=== PATIENT | female | born 1990 | race Caucasian/White ===

== ENCOUNTER 2022-03-01 07:41 | Outpatient (REF) | payer OTHER, SELFPAY ==
[2022-03-01 11:09] LABS: MANUAL DIFF FLAG NO
[2022-03-01 11:14] LABS: Basophils Absolute Auto 0.1 X10*3/uL (0.0-0.2); Basophils Percent Auto 0.9 % (0-2); Eosinophils Absolute Auto 0.6 X10*3/uL (0.0-0.4); Eosinophils Percent Auto 8.7 % (0-4); Hematocrit 37.9 % (37.0-47.0); Hemoglobin 12.7 g/dl (12.0-16.0); Imm Gran Abs Auto 0.02 X10*3/uL (0.00-0.03); Imm Gran Pct Auto 0.3 % (0.0-0.4); Lymphocytes Absolute Auto 1.8 X10*3/uL (1.2-4.9); Lymphocytes Percent Auto 27.6 % (20-40); Mean Corpuscular HGB Conc 33.5 g/dl (31.0-35.0); Mean Corpuscular Hemoglobin 30.5 pg (27.0-33.0); Mean Corpuscular Volume 90.9 fL (80.0-98.0); Mean Platelet Volume 10.8 fL (9.4-12.3); Monocytes Absolute Auto 0.5 X10*3/uL (0.1-1.2); Monocytes Percent Auto 6.9 % (2-11); Neutrophils Absolute Auto 3.7 x10*3/uL (2.0-8.3); Neutrophils Percent Auto 55.6 % (45-73); Platelet Count 311 X10*3/uL (160-400); Red Blood Count 4.17 X10*6/uL (4.20-5.50); Red Cell Distribution Width 12.1 % (11.0-16.0); White Blood Count 6.7 X10*3/uL (4.8-10.8)
[2022-03-01 11:22] LABS: Alanine Aminotransferase 27 U/L (0-31); Albumin Level 4.1 g/dL (3.5-5.0); Alkaline Phosphatase 60 U/L (39-117); Anion Gap 10 (12-20); Aspartate Amino Transferase 17 U/L (5-31); Bilirubin Total 0.5 mg/dL (0.0-1.0); Blood Urea Nitrogen 10 mg/dL (9-16); Calcium 9.3 mg/dL (8.4-10.2); Carbon Dioxide 28 mmol/L (22-29); Chloride 105 mmol/L (96-108); Cholesterol 200 mg/dL; Estimated Glomerular Filt Rate > 60; Glucose Fasting 91 mg/dL (60-99); HDL Cholesterol 40 mg/dL; Iron 74 mcg/dL (30-160); LDL Cholesterol Calculated 130 mg/dl; Percent Iron Saturation 20 % (15-50); Potassium 4.3 mmol/L (3.3-5.1); Sodium 139 mmol/L (135-145); Total Iron Binding Capacity 369 mcg/dL (228-428); Total Protein 6.7 g/dL (6.5-8.0); Triglycerides 153 mg/dL; Unsaturated Iron Binding 295 ug/dL
[2022-03-01 11:40] LABS: ~Hepatitis B Surface Antibody REACTIVE (Nonreactive)
[2022-03-01 11:42] LABS: Estimated Average Glucose 100 mg/dL; Hemoglobin A1c % 5.1 %
[2022-03-01 11:45] LABS: Ferritin 37 ng/mL (10-122); Free T4 (Free Thyroxine) 0.86 ng/dL (0.71-1.85); Thyroid Stimulating Hormone 1.73 uIU/mL (0.32-4.0); Vitamin D 25-OH Total 19.5 ng/mL (>30)
[2022-03-01 11:57] LABS: Vitamin B12 401 pg/mL (200-900)
[2022-03-03 07:07] LABS: Rubella IgG Antibody 3.93 Index
== END 2022-03-01 07:42 | disposition home or self-care (01) ==
LOC: HO.MANLDS 07:41
PROVIDERS: PCP Physician Assistant; Visit Provider Physician Assistant
DX: Z01.84 Encounter for antibody response examination (principal); R53.83 Other fatigue
CPT/HCPCS: 36415; 80053; 80061; 82306; 82607; 82728; 82746; 83036; 83540; 84439; 84443; 85025; 86706; 86735; 86762; 86765; 86787

== ENCOUNTER 2022-07-04 14:27 | Outpatient (REF) | payer OTHER, SELFPAY ==
[2022-07-04 19:15] LABS: UPreg QC Valid YES; Urine Pregnancy POSITIVE (NEGATIVE)
== END 2022-07-04 14:28 | disposition home or self-care (01) ==
LOC: HO.MANLDS 14:27
PROVIDERS: Visit Provider Physician Assistant
DX: Z33.1 Pregnant state, incidental (principal)
CPT/HCPCS: 81025

== ENCOUNTER 2022-11-17 14:28 | Outpatient (REF) | payer SELFPAY ==
--- NOTE | ~2022-11-17 | US_ITS ---
EXAMINATION: ULTRASOUND RIGHT POPLITEAL FOSSA. CLINICAL INFORMATION: Pain. COMPARISON: None TECHNIQUE: Using a linear transducer with grayscale and color modalities, ultrasound examination is performed of the right popliteal fossa. FINDINGS: The cutaneous, subcutaneous, muscular and fascial planes are unremarkable. No Youssef's cyst is seen. This no right popliteal artery aneurysm demonstrated. The popliteal vein appears patent. US/US extremity nonvascular IMPRESSION: Unremarkable examination.
== END 2022-11-17 14:29 | disposition home or self-care (01) ==
LOC: HO.US 14:28
PROVIDERS: PCP Internal Medicine; Visit Provider Physician Assistant
DX: M25.561 Pain in right knee (principal)
CPT/HCPCS: 76882

== ENCOUNTER 2023-03-31 08:22 | Outpatient (REF) | payer OTHER, SELFPAY ==
[2023-03-31 11:25] LABS: MANUAL DIFF FLAG NO
[2023-03-31 11:26] LABS: Basophils Absolute Auto 0.1 X10*3/uL (0.0-0.2); Basophils Percent Auto 0.8 % (0-2); Eosinophils Absolute Auto 0.4 X10*3/uL (0.0-0.4); Eosinophils Percent Auto 6.5 % (0-4); Hematocrit 36.2 % (37.0-47.0); Hemoglobin 11.6 g/dl (12.0-16.0); Imm Gran Abs Auto 0.01 X10*3/uL (0.00-0.03); Imm Gran Pct Auto 0.2 % (0.0-0.4); Lymphocytes Absolute Auto 1.9 X10*3/uL (1.2-4.9); Mean Corpuscular Hemoglobin 27.2 pg (27.0-33.0); Mean Corpuscular Volume 84.8 fL (80.0-98.0); Monocytes Absolute Auto 0.4 X10*3/uL (0.1-1.2); Monocytes Percent Auto 6.3 % (2-11); Neutrophils Absolute Auto 3.7 x10*3/uL (2.0-8.3); Neutrophils Percent Auto 57.2 % (45-73); Platelet Count 379 X10*3/uL (160-400); Red Blood Count 4.27 X10*6/uL (4.20-5.50); Red Cell Distribution Width 13.2 % (11.0-16.0); White Blood Count 6.5 X10*3/uL (4.8-10.8)
[2023-03-31 11:41] LABS: Alanine Aminotransferase 21 U/L (0-31); Albumin Level 4.3 g/dL (3.5-5.0); Alkaline Phosphatase 89 U/L (39-117); Anion Gap 13 (12-20); Aspartate Amino Transferase 14 U/L (5-31); Bilirubin Total 0.5 mg/dL (0.0-1.0); Blood Urea Nitrogen 10 mg/dL (9-16); Calcium 9.3 mg/dL (8.4-10.2); Carbon Dioxide 26 mmol/L (22-29); Chloride 107 mmol/L (96-108); Cholesterol 199 mg/dL; Estimated Glomerular Filt Rate > 60; Glucose Random 86 mg/dL (60-115); HDL Cholesterol 35 mg/dL; LDL Cholesterol Calculated 120 mg/dl; Potassium 4.7 mmol/L (3.3-5.1); Sodium 141 mmol/L (135-145); Triglycerides 220 mg/dL
[2023-04-02 23:20] LABS: TS Negative Control Passed; TS Panel A 0; TS Panel B 0; TS Positive Control Passed; TSpotTB Negative (Negative)
== END 2023-03-31 08:23 | disposition home or self-care (01) ==
LOC: HO.MANLDS 08:22
PROVIDERS: Visit Provider Physician Assistant
DX: Z00.00 Encounter for general adult medical examination without abnormal findings (principal); Z11.1 Encounter for screening for respiratory tuberculosis
CPT/HCPCS: 36415; 80053; 80061; 85025; 86481

== ENCOUNTER 2023-04-17 15:03 | Outpatient (REF) | payer OTHER, SELFPAY ==
--- NOTE | ~2023-04-17 | MR_ITS ---
EXAMINATION: MR KNEE WITHOUT CONTRAST, RIGHT CLINICAL INFORMATION: Antalgic gait. Pain and swelling in the right knee. COMPARISON: None available. TECHNIQUE: MRI of the knee without contrast was performed using routine sequences on a high-field scanner. FINDINGS: MENISCI: Medial Meniscus: Intact. Lateral Meniscus: Intact. LIGAMENTS: Cruciate: Intact. Collateral: Intact. EXTENSOR MECHANISM: Intact. ARTICULAR CARTILAGE/BONE: Patellofemoral Compartment: Normal trochlear morphology. There is a small chondral fissure at the inferior aspect of the medial trochlear facet measuring 3 mm in width. No discrete chondral defects. Medial Compartment: Articular cartilage is normal. Small areas of subcortical marrow edema signal are evident at the anteromedial margin of the medial femoral condyle and at the proximal/posterior margin of the lateral femoral condyle near the posterior weightbearing surface, potentially due to contusions. No appreciable erosions. Lateral Compartment: Articular cartilage is normal. A 1.5 x 0.8 cm region of focal subchondral edema signal at the posterior weightbearing surface of the lateral femoral condyle may correspond to an articular contusion or osteochondral injury. Overlying articular cortex is normal. No findings of instability. Lateral tibial plateau is unremarkable. JOINT FLUID AND BURSAE: Trace joint fluid is within normal limits. No Youssef's cyst or effusion. MR/MR knee RT wo con IMPRESSION: 1. Intact ligaments and menisci. 2. Multiple small foci of subcortical periarticular marrow edema signal at the medial and lateral femoral condyles, potentially corresponding to osseous contusions. A 1.5 x 0.8 cm focus of subchondral marrow signal abnormality at the lateral femoral condyle posterior weightbearing surface could correspond to an osteochondral injury, though the overlying articular cartilage is normal and there are no findings of instability. 3. Small chondral fissure at the medial trochlear facet.
== END 2023-04-17 15:04 | disposition home or self-care (01) ==
LOC: HO.MRI 15:03
PROVIDERS: PCP Physician Assistant; Visit Provider Physician Assistant
DX: M25.561 Pain in right knee (principal)
CPT/HCPCS: 73721

== ENCOUNTER 2024-04-05 08:44 | Outpatient (REF) | payer OTHER, SELFPAY ==
[2024-04-05 08:59] LABS: MANUAL DIFF FLAG NO
[2024-04-05 09:25] LABS: Basophils Absolute Auto 0.1 X10*3/uL (0.0-0.2); Basophils Percent Auto 1.1 % (0-2); Eosinophils Absolute Auto 0.4 X10*3/uL (0.0-0.4); Eosinophils Percent Auto 5.8 % (0-4); Hematocrit 37.3 % (37.0-47.0); Hemoglobin 12.5 g/dl (12.0-16.0); Imm Gran Abs Auto 0.02 X10*3/uL (0.00-0.03); Imm Gran Pct Auto 0.3 % (0.0-0.4); Lymphocytes Absolute Auto 2.5 X10*3/uL (1.2-4.9); Mean Corpuscular HGB Conc 33.5 g/dl (31.0-35.0); Mean Corpuscular Hemoglobin 28.3 pg (27.0-33.0); Mean Corpuscular Volume 84.6 fL (80.0-98.0); Mean Platelet Volume 9.8 fL (9.4-12.3); Monocytes Absolute Auto 0.6 X10*3/uL (0.1-1.2); Monocytes Percent Auto 7.9 % (2-11); Neutrophils Absolute Auto 3.5 x10*3/uL (2.0-8.3); Neutrophils Percent Auto 49.9 % (45-73); Platelet Count 340 X10*3/uL (160-400); Red Blood Count 4.41 X10*6/uL (4.20-5.50); Red Cell Distribution Width 12.8 % (11.0-16.0); White Blood Count 7.1 X10*3/uL (4.8-10.8)
[2024-04-05 10:00] LABS: Alanine Aminotransferase 30 U/L (0-31); Albumin Level 4.2 g/dL (3.5-5.0); Alkaline Phosphatase 68 U/L (39-117); Anion Gap 14 (12-20); Aspartate Amino Transferase 19 U/L (5-31); Bilirubin Total 0.4 mg/dL (0.0-1.0); Blood Urea Nitrogen 11 mg/dL (9-16); Calcium 9.2 mg/dL (8.4-10.2); Carbon Dioxide 25 mmol/L (22-29); Chloride 105 mmol/L (96-108); Cholesterol 172 mg/dL (<200); Estimated Glomerular Filt Rate > 60; Glucose Random 90 mg/dL (60-115); HDL Cholesterol 33 mg/dL (>40); LDL Cholesterol Calculated 106 mg/dL (<100); Sodium 140 mmol/L (135-145); Triglycerides 169 mg/dL (<150)
[2024-04-05 10:01] LABS: Estimated Average Glucose 108 mg/dL; Hemoglobin A1c % 5.4 % (<6.0)
[2024-04-05 10:20] LABS: TSH reflex Free T4 1.83 uIU/mL (0.32-4.0); Thyroid Stimulating Hormone 1.83 uIU/mL (0.32-4.0); Vitamin D 25-OH Total 35.9 ng/mL (>30)
[2024-04-07 23:03] LABS: TS Negative Control Passed; TS Panel A 3; TS Panel B 3; TS Positive Control Passed; TSpotTB Negative (Negative)
== END 2024-04-05 08:45 | disposition home or self-care (01) ==
LOC: HO.LAB 08:44
PROVIDERS: PCP Internal Medicine; Visit Provider Physician Assistant
DX: Z00.00 Encounter for general adult medical examination without abnormal findings (principal); Z11.1 Encounter for screening for respiratory tuberculosis; R73.01 Impaired fasting glucose
CPT/HCPCS: 36415; 80053; 80061; 82306; 83036; 84443; 85025; 86481

== ENCOUNTER → 2024-05-24 09:33 | Outpatient (BNVA) | payer OTHER, SELFPAY | PROVIDERS: PCP Internal Medicine; Visit Provider Physician Assistant Surgical ==

== ENCOUNTER 2024-07-19 07:57 | Outpatient (REF) | payer OTHER, SELFPAY ==
--- NOTE | ~2024-07-19 | MM_ITS ---
EXAMINATION: MM SCREENING DIGITAL BREAST TOMOSYNTHESIS, BILATERAL CLINICAL INFORMATION: Screening. Asymptomatic. COMPARISON: Mammography: Comparison is made with available priors TECHNIQUE: Digital breast mammography with tomosynthesis is performed in both the craniocaudal and mediolateral oblique views along with computer-aided detection (CAD). FINDINGS: There are scattered areas of fibroglandular density (ACR BI-RADS breast composition Category b). There are no significant masses, abnormal calcifications, or other abnormalities. MM/MM tomosynthesis screening BI IMPRESSION: No mammographic evidence of malignancy. ASSESSMENT: BI-RADS BI-RADS 1 - Negative RECOMMENDATION: Routine annual mammography screening. 1 year F/U This examination should not preclude the clinical evaluation of a suspicious palpable abnormality. This patient's information was entered into a reminder system with a target due date for their next mammogram. Electronically signed by: Amanda Pappsa DO 08/01/2024 08:07 PM EDT
== END 2024-07-19 07:58 | disposition home or self-care (01) ==
LOC: HO.MAMMO 07:57
PROVIDERS: PCP Physician Assistant; Visit Provider Physician Assistant
DX: Z12.31 Encounter for screening mammogram for malignant neoplasm of breast (principal)
CPT/HCPCS: 77063; 77067

== ENCOUNTER → 2024-07-19 08:00 | Outpatient (BNV) | payer OTHER, SELFPAY | PROVIDERS: PCP Physician Assistant; Visit Provider Internal Medicine | DX: Z12.31 Encounter for screening mammogram for malignant neoplasm of breast (principal) | CPT/HCPCS: 77063; 77067 ==

== ENCOUNTER 2024-12-20 08:46 | Outpatient (REF) | payer OTHER, SELFPAY ==
--- NOTE | ~2024-12-20 | FL_ITS ---
EXAMINATION: XR FLUOROSCOPY ESOPHAGRAM. CLINICAL INFORMATION: Dysphagia. Patient complaining of episodic, frequent solid food getting stuck at approximately the external notch level. No additional complaints. COMPARISON: None TECHNIQUE: Fluoroscopic air contrast upper GI examination was performed utilizing standard techniques with thin and thick barium and effervescent granules. Numerous spot images were obtained. Several fluoroscopic image hold cine sequences were also obtained. This was followed by small bowel series using standard overhead radiographic techniques at specified intervals until contrast was seen in the right colon. Fluoroscopic spot radiographs were then obtained of the terminal ileum and any abnormal findings in the small bowel. FINDINGS: UPPER GI SERIES: Lateral cine images of the oropharynx and hypopharynx demonstrate normal swallow mechanism with normal epiglottic inversion and soft palate elevation. No tracheal penetration, glottic or subglottic aspiration identified. No nasopharyngeal reflux present. Hypopharyngeal structures appear normal without evidence of mass or diverticulum. There was no significant cricopharyngeal achalasia. Dual and single contrast images of the esophagus demonstrate normal caliber, contour, and mucosal pattern. No evidence of stricture, mass, or ulcerations identified. Felinization contraction pattern, in keeping with reflux. Esophageal peristalsis was mildly disordered. Tiny type I hiatus hernia identified. Small Schatzki's ring present, which is nonobstructing. Significant GE reflux was visualized during the exam to the level of the thoracic inlet. Dual contrast and single contrast images of the stomach demonstrated normal contour and mucosal pattern without evidence of mass, ulceration, or other abnormality. Contrast freely passed into the gastric antrum and duodenal bulb without delay. Single and air-contrast images of the duodenal bulb demonstrate no abnormality. The duodenal sweep has a normal appearance, course, and mucosal fold appearance. FLUOROSCOPY TIME: 2 minutes, 34 seconds Number of Spot Images:8 Number of cines obtained: 11 DOSE AREA PRODUCT: 3029 uGy-m2 (microgray-meter squared) FL/FL barium swallow with air IMPRESSION: 1. Significant gastroesophageal reflux present during the exam. 2. Felinization of the esophagus with mild disordered motility, likely on the basis of chronic reflux. 3. Small type I hiatus hernia. 4. Schatzki's ring at the GE junction, nonobstructing. 5. No anatomic abnormality of the hypopharynx or upper esophagus to explain patient symptomatology. Electronically signed by: Guille Hui MD 12/20/2024 09:30 AM GERARDO GALLEGOS
--- OUTSIDE RECORDS SUMMARY | 2024-12-20 09:01 | XMS_ITS | Data Portability ---
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, blood or tissue 2023 024 [employer] [facility], [address] [place], [address], 05/27/2024 12:55:36 hemoglobi n A1c, QN, blood 2023 024 [facility], [address] [place] [address], [place], [address], 03/25/2024 10:31:13 CMP, serum or plasma 2023 024 [facility], [address] [place] [address], [address], 04/05/2024 11:17:08 CBC w/ auto diff 2023 024 [facility], [address] [place] [address], [address], 03/25/2024 10:31:13 lipid panel, serum 2023 024 [facility], [address] [place] [address], [address], 04/05/2024 11:17:08 tb (M tuberculo sis), ifn-gamma chai, blood 2023 024 [facility], [address] [place] [address], [address], 04/08/2024 11:20:30 TSH + free T4, serum 2023 024 [facility], [address] [place] [address], [address], 04/05/2024 11:17:08 vitamin D, 25-hydrox y, total, serum 2023 024 [facility], [address] [place] [address], [address], 03/25/2024 10:31:14 tb (M tuberculo sis), ifn-gamma chai, blood 2022 023 [facility], [address] [place] [address], [address], 03/06/2023 13:55:17 CMP, serum or plasma 2022 023 [facility], [address] [place] [address], [address], 04/03/2023 11:17:10 CBC w/ auto diff 2022 023 [facility], [address] [place] [address], [address], 04/03/2023 11:17:10 lipid panel, blood 2022 023 [facility], [address] [place] [address], [address], 04/03/2023 11:17:10 Referral dermatolo gist referral 2023 024 [facility] Gabriela Pierre MD, [address], [place], [address], 03/26/2024 08:19:46 Procedures None recorded. Surgeries None recorded. Imaging barium swallow study 2023 024 [facility], [address] [place] [address], [place], [address], 10/15/2024 07:58:05 MAMMO, screening , digital, bilateral - sig fam hx of breast cancer including mother with CHEK2 mutation positive for high risk of breast, ovarian and endometri al cancer 2023 024 [facility], [address] , [place], [address], 07/24/2024 08:13:57 Medication Orders bupropion HCl XL 150 mg 24 hr tablet, extended release 2023 024 [email or web address] [facility][id number], [address] [facility], [place], [address], 07/09/2024 15:38:18 Patient TargetsNo targets recorded. Patient InstructionsNo instructions recorded. 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 [facility] (Medical Records) [address] [facility], [place], [address], 04/24/2023 16:16:25 08/01/20 24 07/19/2024 MAMMO , scree karmen, digit al, bilat eral No observ ation record ed. [facility] [address] [place], [address], 2024 12:21:51 Result Notes None recorded. Problems Name Problem SNOMED Code Status Onset Date Resolution Date Notes Provider Name and Address Organization Details Recorded Time Lumbar sprain 727949794 Active 2017 Ru Louis, [address] [place] [address], [address], [facility] 8 11:32:47 Impacted cerumen of bilateral ears 925073275739 9108 Active 2021 ROSALIE WATT [address] [place] [address], [address], [facility] 2 08:58:57 Allergic rhinitis 66131036 Active 2021 ROSALIE WATT [address] [place] [address], [address], [facility] 2 09:00:04 Fatigue 46698297 Active 2021 ROSALIE WATT [address] [place] [address], [address], [facility] 2 09:19:58 Pain of bilateral knee joints 412116876766 104 Active 2021 ROSALIE WATT [address] [place] [address], [address], [facility] 2 16:06:41 Acute urinary tract infection 227457855 Active 2022 ROSALIE WATT [address] [place] [address], [address], [facility] 3 12:18:47 Pain of right knee joint 043437563557 100 Active 2022 ROSALIE WATT [address] [place], [address], [facility] 3 12:39:38 Change in skin lesion 694002093 Active 2023 ROSALIE WATT [address] [place] [address], [address], [facility] 4 10:25:30 Anxiety disorder 619633131 Active 2023 ROSALIE WATT [address] [place] [address], [address], [facility] 4 10:27:25 Impaired fasting glycemia 017427515 Active 2023 ROSALIE WATT [address] [place] [address], [address], [facility] 4 10:28:39 Dysphagia 96422742 Active 2023 ROSALIE WATT [address] [place] [address], [address], [facility] 4 12:07:33 Headache 75810832 Active 2017 Johana conti [facility] 8 08:18:46 Non-alcoh olic fatty liver 540146616 Active 2017 Johana conti [facility] 8 08:19:11 Chronic interstit ial cystitis 022489762 Active 2017 Johana conti [facility] 8 08:19:21 Problem Notes None recorded. Procedures Surgical History Date Name Laterality Status Provider Name and Address Organization Details Recorded Time 10/01/20 24 Cerumen Removal completed ROSALIE WATT [address] [place] [address], [address], [facility] 2024 12:15:00 07/07/20 22 Date of Last Pap Smear completed ROSALIE WATT [address] [place], [address], [facility] 02/22/2023 12:57:45 07/07/20 20 Removal of Foreign Body completed ROSALIE WATT [address] [place], [address], [facility] 07/07/2020 16:14:39 03/26/20 19 Removal of foreign body in ear canal completed Ru Louis DO [address] [place], [address], [facility] 03/26/2019 11:04:11 Remove tonsils and adenoids completed ROSALIE WATT [address] [place], [address], [facility] 02/16/2022 09:00:51 Imaging Results Imaging Date Name Status LastModified by Organiz ation Details LastModified Time 04/17/2023 MRI, knee, w/o contrast completed [facility] (Medical Records) [address] [place], [address], 04/24/2023 16:16:25 07/19/2024 MAMMO, screening, digital, bilateral completed [facility] [address] [place], [address], 2024 12:21:51 Procedure Notes None recorded. Medical Equipment None Reported. Allergies No known drug allergies Medications Name Sig Start Date Stop Date Status Note LastModified by Organization Details LastModified Time cyclobenz aprine 10 mg tablet Take 1 tablet every day by oral route at bedtime for 10 days. 07/07 completed Not Available Not Available Not Available azithromy shaunna 250 mg tablet 07/06 completed Not Available Not Available Not Available ibuprofen 800 mg tablet Take 1 tablet 3 times a day by oral route for 10 days. 07/07 completed Not Available Not Available Not Available valacyclo vir 1 gram tablet TAKE 1 TABLET BY MOUTH EVERY 8 HOURS FOR 7 DAYS 03/25 completed Not Available Not Available Not Available hydrocodo ne 5 mg-acetam inophen 325 mg tablet Take 1 tablet every 6 hours by oral route as needed for 7 days. 10/08 completed Not Available Not Available Not Available meloxicam 15 mg tablet Take 1 tablet every day by oral route for 30 days. 10/08 completed Not Available Not Available Not Available ondansetr on HCl 4 mg tablet TAKE 1 TABLET BY MOUTH EVERY 8 HOURS NEEDED FOR NAUSEA 02/22 completed Not Available Not Available Not Available Tubersol 5 tub. unit/0.1 mL intraderm al injection solution Inject 0.1 mL by intrader mal route. 11/02 completed Not Available Not Available Not Available ciproflox acin 250 mg tablet Take 1 tablet every 12 hours by oral route for 7 days. 07/07 completed Not Available Not Available Not Available amoxicill in 875 mg tablet TAKE 1 TABLET BY MOUTH EVERY 12 HOURS FOR 7 DAYS 02/22 completed Not Available Not Available Not Available diclofena c sodium 75 mg tablet,de layed release Take 1 tablet twice a day by oral route for 10 days. 08/31 completed Not Available Not Available Not Available monteluka st 10 mg tablet Take 1 tablet every day by oral route. 03/25 completed on hold while Not Available Not Available Not Available clobetaso l 0.05 % scalp solution 02/22 completed as needed Not Available Not Available Not Available bupropion HCl XL 150 mg 24 hr tablet, extended release TAKE 1 TABLET BY MOUTH EVERY DAY FOR 30 DAYS 07/09 completed Not Available Not Available Not Available FreeStyle Lite Strips TEST 4 TIMES A DAY 03/06 completed Not Available Not Available Not Available FreeStyle [place] Lite kit USE DIRECTED 4 TIMES A DA Y 03/06 completed Not Available Not Available Not Available Pre-Raul Multivita mins with Minerals 27 mg-1 mg-300 mg capsule Take 1 capsule every day by oral route. 03/25 completed Not Available Not Available Not Available B12 active Not Available Not Availa ble Not Available Vitamin D2 active Not Available Not Available Not Available Vitals Date Recorded Body height Body mass index (BMI) Body weight Heart rate Oxygen saturation Oxygen saturation in Arterial blood by Pulse oximetry Systolic blood pressure Diastolic blood pressure Provider Name and Address Organization Details Last Updated DateTime 3 170.18 cm 37.3 kg/m2 719777. 98 g 89 /min 99 % 99 % 112 mm[Hg] 70 mm[Hg] Keshia Perez [facility] 3 13:40:21 Date Recorded Body height Body mass index (BMI) Body weight Heart rate Oxygen saturation Oxygen saturation in Arterial blood by Pulse oximetry Systolic blood pressure Diastolic blood pressure Provider Name and Address Organization Details Last Updated DateTime 4 170.18 cm 42.9 kg/m2 563823. 31 g 82 /min 98 % 98 % 122 mm[Hg] 78 mm[Hg] Tran Butler [facility] 4 10:01:18 Date Recorded Body height Body mass index (BMI) Body weight Heart rate Oxygen saturation Oxygen saturation in Arterial blood by Pulse oximetry Systolic blood pressure Diastolic blood pressure Provider Name and Address Organization Details Last Updated DateTime 4 170.18 cm 42.9 kg/m2 932106. 31 g 93 /min 98 % 98 % 128 mm[Hg] 80 mm[Hg] Tita Kiddmond [facility] 4 13:20:54 Date Recorded Body height Body mass index (BMI) Body weight Heart rate Oxygen saturation Oxygen saturation in Arterial blood by Pulse oximetry Systolic blood pressure Diastolic blood pressure Provider Name and Address Organization Details Last Updated DateTime 4 170.18 cm 42.9 kg/m2 874643. 31 g 87 /min 98 % 98 % 118 mm[Hg] 82 mm[Hg] Tran Butler [facility] 4 15:39:34 Social History Question Answer Notes LastModified by Organizat ion Details LastModified Time Tobacco Smoking Status [facility] 05/29/2018 09:27:49 What Is Your Level Of Alcohol Consumption? Moderate Information not available 02/16/2022 What Is Your Level Of Caffeine Consumption? Moderate Information not available 02/16/2022 What Was The Date Of Your Most Recent Tobacco Screening? 07/09/2024 [email or web address] Information not available 07/09/2024 Do You Use Any Illicit Or Recreational Drugs? No Information not available 02/16/2022 Do You Or Have You Ever Used Any Other Forms Of Tobacco Or Nicotine? No Information not available 02/16/2022 Sex: Unknown Functional Status None recorded. Mental Status None recorded. Family History Relationship Description Onset Age of this Age Resolved Age Notes LastModified by Organization Details LastModified Time Mother Family history of malignant neoplasm 49 Mother with DCIS at age 49 [email or web address] Not available 12/25/2018 08:57:33 Unspecified Relation Diabetes mellitus [email or web address] Not available 2018 09:24:24 Medical History Condition Response Coronary Artery Disease N Other N Gout N Blood Diseases N Kidney Stones N Breast Cancer N Blood Transfusion N Lung Disease N Depression N COPD N Defects or Inherited Disease N Anxiety Disorder N Muscle, Joint, or Bone Problems N Obesity N Vision or Eye Problems N Arthritis N Infertility N Polyps N Mental Disorder N Cancer N Stroke N Varicosities N Endometriosis N Bladder or Kidney Problems N High Cholesterol N Liver Disease N Fibromyalgia N Headaches N Kidney Disease N Allergies/Hayfever N Heart Problems N Hospitalizations N Thyroid Problems N GI Problems N Eating Disorder N Skin Problems N Anemia N MRSA exposure N Constipation N Mental Illness N Diabetes N Ovarian Cancer N Seizures/Epilepsy N Tuberculosis N Congestive Heart Failure (CHF) N Eczema N Abuse/Domestic Violence N Diverticulitis N Asthma N Reflux/GERD N Hepatitis N Heart Disease N Pulmonary Embolism N Hypertension N Chicken Pox N Autism Spectrum Disorder (ASD) N Osteoporosis N Gynecological History Statement/Question Response Abnormal Pap N STIs/STDs N HPV Vaccine Y Duration of Flow (days) 28 Age at Menarche 11 Current Control Method Abstinence Age at First Child 32 Sexually Active? Y Menses Monthly Y Date of Last Pap Smear 07/07/2022 Sexual Problems? N Desired Control Method Partner Vas ectomy Obstetrics History GPAL:G 1 P 1 0 0 1 Type Value Full Term 1 Living 1 Total 1 Immunizations Vaccine Type Date Status Note Provider Julio Cesar anne and Address Organization Details Recorded Time Influenza, split virus, quadrivalent, preservative 1 completed PATRICIA Monterroso [facility] 09/03/2021 08:40:45 COVID-19, mRNA, LNP-S, PF, 100 mcg/0.5mL dose or 50 mcg/0.25mL dose 1 completed Arlene conti [facility] 10/13/2021 08:18:37 COVID-19, mRNA, LNP-S, PF, 100 mcg/0.5mL dose or 50 mcg/0.25mL dose 1 completed Arlene conti [facility] 10/13/2021 08:18:43 Tdap 4 completed Arlene conti [facility] 10/13/2021 08:19:00 COVID-19, mRNA, LNP-S, PF, 100 mcg/0.5mL dose or 50 mcg/0.25mL dose 2 completed Arlene conti [facility] 05/20/2022 08:24:48 Influenza, split virus, quadrivalent, preservative 2 completed Melissa conti [facility] 09/05/2022 15:55:03 [facility]dap 3 [facility] 08:30:53 Past Encounters Encounter ID Performer Location Encounter Start Date Encounter Closed Date Diagnosis/Indication Diagnosis SNOMED-CT Code Diagnosis ICD10 Code Diagnosis Note [id number] Ru Louis [facility] [address],[place] [address] 05/29/2018 09:18:09 05/29/2018 10:02:01 Foot pain 96834706 M79.672 will need xray of foot to r/o stress fracture will get very comfortabl e shoes for work will need podiatry referral [id number] Ru Louis [facility] [address] [facility], [place] [address] 07/06/2018 15:12:31 07/06/2018 17:00:22 Exanthem due to herpes zoster 588951313 B02.8 finish valacyc as orderred and then look in to getting the vaccine kaity [id number] Ru Louis [facility] [address] [facility], [place] [address] 08/06/2018 11:10:01 08/06/2018 12:17:09 Herpes zoster 4679627 B02.9 resolved no evid of post neuralgia strongly encouraged to get the shingrix vacc [id number] Ru Louis [facility] [address] [facility],[place] [address] 08/27/2018 10:10:48 08/27/2018 11:25:26 Low back pain 062902221 M54.5 3 wk duration and no improvemen t needs xray and will then rechk' must consider uterine? as well given incidence with menses [id number] Ru Louis [facility] [address] [facility],[place] [address] 08/31/2018 12:05:40 08/31/2018 13:23:58 Low back pain 522571977 M54.5 3 wk duration and no improvemen t needs xray and will then rechk' must consider uterine? as well given incidence with menses [id number] Ru Moratayaleslie [facility] [address] [facility],[place] [address] 10/08/2018 11:03:05 10/08/2018 11:39:09 Lumbar sprain 590073340 S33.5XXD will cont to have ongoing issue bc she is vulnerable at this time and she will cont PT as it is helping will ask to have the PT extended [id number] Ru AndersonViry Hoodleslie [facility] [address] [facility],[place] [address] 10/22/2018 10:55:15 10/22/2018 12:19:42 Strain of left trapezius muscle 3799651687 0842790 S29.012A will cont the ROM and give med as described below Pain in ce rvical spine 613104149 M54.2 will treat as follows Ru AndersonViry Hoodleslie [facility] [address] [facility],[place] [address] 03/26/2019 10:37:45 03/26/2019 11:51:56 Impacted cerumen 47027614 H61.22 [id number] ROSALIE WATT [facility] [address],[place] [address] 07/07/2020 15:58:13 07/07/2020 16:44:53 Foreign body of foot 007172147 S99.822D sliver removed successful ly without blood loss or pain patient tolerated procedure well [id number] ROSALIE WATT [facility] [address],[place] [address] 02/16/2022 08:46:35 02/16/2022 09:24:01 Active or passive immunization 434476529 Z23 advisedTDA P up to date Adult heal th examination 672411864 Z00.00 BP is excellentw ill set up with titers for school Fatigue 52491930 R53.83 will fu with complete blood work panel [id number] Ru Louis [facility] [address],[place] [address] 03/21/2022 15:08:10 03/21/2022 16:28:09 Tuberculosis screening 096669404 Z11.1 [id number] Ru Louis [facility] [address],[place] [address] 03/23/2022 11:51:34 03/23/2022 13:50:04 Tuberculosis screening 326341068 Z11.1 [id number] Ru Louis [facility] [address],[place] [address] 05/25/2022 08:57:47 05/25/2022 13:21:15 Tuberculosis screening 902771151 Z11.1 [id number] Ru Luois [facility] [address],[place] [address] 05/27/2022 09:19:53 05/27/2022 10:02:55 Tuberculosis screening 430301341 Z11.1 [id number] ROSALIE WATT [facility] [address],[place] [address] 11/02/2022 15:31:49 11/02/2022 16:19:27 Pain of bilateral knee joints 7819662793 37197 M25.561 [place] [id number] ROSALIE WATT [facility] [address],[place] [address] 02/22/2023 14:11:00 02/22/2023 15:21:06 Pain of right knee joint 5382458649 56921 M25.561 MRI [place] [id number] ROSALIE WATT [facility] [address] [facility] [address] [address],[place] [address] 03/06/2023 13:35:43 03/06/2023 17:13:19 Adult health examination 623295439 Z00.00 BP is excellentn eed 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 [id number] ROSALIE WATT [facility] [address] [facility] [address] [address],[place] [address] 03/25/2024 09:48:55 03/25/2024 14:06:06 Active or passive immunization 503413743 Z23 advisedTDA P up to date Adult heal th examination 095357525 Z00.00 BP is excellent Depression screening 171 549985 Z13.31 negative Body mass index 40+ - severely obese 634108194 Z68.41 discussed options Change in skin lesion 39 0439406 L98.9 will set up with dermatolog y Anxiety disorder 6673824 06 F41.9 will set up with Impaired f asting glycemia 843879884 R73.01 Tuberculos is screening 913047193 Z11.1 will set up with lab work [id number] ROSALIE WATT [facility] [address],[place] [address] 05/03/2024 13:17:52 05/03/2024 13:50:09 Family history of breast cancer 866540607 Z80.3 will set up with testing given family historynixon huang give paperwork, [id number] ROSALIE WATT [facility] [address],[place] [address] 07/09/2024 15:24:25 07/09/2024 16:28:33 Screening mammography of bilateral breasts 6564971890 71961 Z12.31 set up MM for patient Family his tory of breast cancer 713152406 Z80.3 reviewed [id number] ROSALIE WATT [facility] [address] [facility] [address],[place] [address] 2024 11:51:08 2024 13:18:55 Dysphagia 51374730 R13.12 will set up with barium swallow Impacted c erumen of bilateral ears 2084000121 310706 H61.23 bilateral, no lavage, used a curette to remove wax Health Concerns Section Related Observation LastModified by Organization Detai ls LastModified Time None Recorded Concern Status LastModified by Organization Details LastModified Time None Recorded Advance Directives Directive None Recorded Payers Encounter Date Sequence Insurance Name Policy Number Policy Osborne Covered Member ID Osborne Member ID Guarantor Name 03/06/2023 1 [facility] (O) [id number] Arlene Blanton [id number] Arlene Blanton 03/25/2024 1 [facility] [id number] Arlene Blanton [id number] Arlene Blanton 05/03/2024 1 [facility] [id number] Arlene Blanton [id number] Arlene Blanton 07/09/2024 1 [facility] [id number] Arlene Blanton [id number] Arlene Blanton 2024 1 [facility] [id number] Arlene Blanton [id number] Arlene Blanton Notes Date Note Type Note Provider Name and Address Organization Details Recorded Time 3 text/html Annual WellnessReported bypatient.Diet and Nutrition:healthy diet; discussed vitamin and supplement use; discussed portion control; discussed maintaining calcium balance; discussed diet improvement Fracture Risk:no history of fractures; no recent explained fracture; no sudden unexplained fractures; no previous musculoskeletal injuries Physical Activity:exercises on a regular basis; recent increase in physical activity; good physical condition Additional Lifestyle Factors:no tobacco use; drinks alcohol (mild-moderate) Depression Risk:never feels sad, empty, or tearful; no loss of interest in activities; no significant changes in weight; no sleep disturbances or insomnia; no agitation; no loss of energy; no feelings of worthlessness or guilt; no thoughts of suicide; no history of depression; no history of mood disorders; improving Hearing:no loss of hearing Vision:no vision problems BP is excellent [address] [place], [address], [facility] 03/06/2023 14:00:53 4 text/html Annual WellnessReported bypatient.Diet and Nutrition:healthy diet Fracture Risk:no history of fractures; no recent explained fracture; no sudden unexplained fractures; no previous musculoskeletal injuries Physical Activity:exercises on a regular basis; recent increase in physical activity; good physical condition Additional Lifestyle Factors:no tobacco use; no alcohol intake; stopped drinking alcohol Depression Risk:never feels sad, empty, or tearful; no loss of interest in activities; no significant changes in weight; no sleep disturbances or insomnia; no agitation; no loss of energy; no feelings of worthlessness or guilt; no thoughts of suicide; no history of depression; no history of mood disorders Hearing:no loss of hearing Vision:no vision problems [address]IE [address] [place], [address], [facility] 03/25/2024 11:01:29 4 text/html 3 mos f/u the patient reports that her hips have been bothering her stillchiropractor took X/R's which showed misalignmentworking with them to help with re-aligning the hipswill let me know if no improvement the patient needs her skin tag removed today in officeprepped with lidocaine 1% and alcohol prep padremoved with 15 g scalpel and cleaned and dressed prior to leaving needs genetic testing for her fam hx of breast cancer with mother ROSALIE [address] [place], [address], [facility] 05/03/2024 13:48:02 4 text/html 1 mos f/u the pt came in for a f/u for her BWpositive for CHEK2 Mutation, discussed results with her, 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 agreed to screening for the MM patient given positive mutations and sig fam hx of breast cancer brigitte with her mother RADHA put into [facility] to start her screenings ROSALIE [address] [place], [address], [facility] 07/09/2024 16:21:11 4 text/html ear lavage the patient reports that she was noticing some discomfort in both of her earshx of impacted cerumen and needed tubes when she was youngerdoes have some mild wax build up toward will set up with using sudafed and flonase for the fluid build up in her ears the patient will need f/u barium swallow to determine cause for dysphagiathe patient reports that she is having recurrent issues with hiccups, swallowing, dyspepsia ROSALIE [address] [facility], [place], [address], [facility] 2024 12:22:01 OBGyn Episode No OBEpisode recorded.
--- OUTSIDE RECORDS SUMMARY | 2024-12-20 09:02 | XMS_ITS | Clinical Summary ---
Author Organization [facility] ity Address [id number] [place] [id number] Care Team Providers Care Seismographer Name Role Phone Ru Louis DO Primary Care Provider [phone] Surgical History Surgery Date Site/Laterality Comments TONSILLECTOMY PROCEDURE: HISTORICAL TONSILLECTOMY Medical History Medical History Date Comments Interstitial cystitis DX:Interst itial cystitis BMI 40.0-44.9, adult (CMS/HCC) D X:BMI 40.0-44.9, adult (HCC) Family History Medical History Relation Name Comments Breast cancer Mother Cervical cancer Neg Hx Colon cancer Neg Hx Ovarian cancer Neg Hx Pancreatic cancer Neg Hx Uterine cancer Neg Hx Relation Name Status Comments Father Alive Maternal Grandfather Maternal Grandmother Mother Alive Paternal Grandfather Alive Paternal Grandmother Alive Social History Tobacco Use Types Packs/Day Years Used Date Smoking Tobacco: Never Smokeless Tobacco: Never Alcohol Use Standard Drinks/Week Comments Yes 0 (1 standard drink = 0.6 oz pur e alcohol) Comments Unknown Sex and Gender Information Value Date Recorded Sex Assigned at Not on file Legal Sex Female 6:52 PM EST Gender Identity Not on file Sexual Orientation Not on file Obstetrics History Last Filed Vital Signs Vital Sign Reading Time Taken Comments Blood Pressure 132/85 08/13/2024 11:03 AM EDT Si tting R Arm Pulse 71 08/13/2024 11:03 AM EDT Temperature - - Respiratory Rate - - Oxygen Saturation - - Inhaled Oxygen Concentration - - Weight 127 kg (279 lb) 08/13/2024 11:03 AM EDT Height 172.7 cm (5' 8 ) 08/13/2024 11:03 AM EDT Body Mass Index 42.42 08/13/2024 11:03 AM EDT Plan of Treatment Health Maintenance Due Date Last Done Comments Hepatitis B Vaccines (1 of 3 - 19+ 3-dose series) 2007 Cervical Cancer Screening: HPV 2009 Depression Screening 10/15/2022 HIV Screening 10/15/2022 Hepatitis C Screening 10/15/2022 Social Influencers of Health Screening 10/15/2022 COVID-19 Vaccine (1 - 2023-2 5 season) 2024 Influenza Vaccine (#1) 2024 07/22/2022 DTaP,Tdap,and Td Vaccines (2 - Td or Tdap) 11/24/2032 11/24/2022 HIB Vaccines Aged Out No longer eligi ble based on patient's age to complete this topic HPV Vaccines Aged Out No longer eligi ble based on patient's age to complete this topic Hepatitis A Vaccines Aged Out No long er eligible based on patient's age to complete this topic IPV Vaccines Aged Out No longer eligi ble based on patient's age to complete this topic MMR Vaccines Aged Out No longer eligi ble based on patient's age to complete this topic Meningococcal ACWY Vaccine Aged Out N o longer eligible based on patient's age to complete this topic Meningococcal B Vacine Aged Out No lo nger eligible based on patient's age to complete this topic Pneumococcal Vaccine: Pediat rics (0 to 5 Years) and At-Risk Patients (6 to 64 Years) Aged Out No longer eligi ble based on patient's age to complete this topic RSV Immunization Patients Un issa 20 months Aged Out No longer eligible b ased on patient's age to complete this topic Varicella Vaccines Aged Out No longer eligible based on patient's age to complete this topic Care Teams Seismographer Relationship Specialty Start Date End Date Ru Louis DO [address] [facility] [address] [place], [place] PCP - General 01/19/11
== END 2024-12-20 08:47 | disposition home or self-care (01) ==
LOC: HO.XRAY 08:46
PROVIDERS: PCP Physician Assistant; Visit Provider Physician Assistant
DX: R13.12 Dysphagia, oropharyngeal phase (principal)
CPT/HCPCS: 74221

== ENCOUNTER → 2024-12-20 08:48 | Outpatient (BNV) | payer OTHER, SELFPAY | PROVIDERS: PCP Physician Assistant; Visit Provider Radiology Diagnostic Radiology | DX: R13.10 Dysphagia, unspecified (principal) | CPT/HCPCS: 74221 ==

== ENCOUNTER 2025-09-17 08:27 | Outpatient (REF) | payer OTHER, SELFPAY ==
--- OUTSIDE RECORDS SUMMARY | 2025-09-17 08:49 | XMS_ITS | Data Portability ---
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 Plan of Treatment Reminders Order Date Submit Date Provider Last Modified By Organization Details Last Modified Time Details Appointments ANNUAL EXAM 2025 09:00A ROSALIE DEL REAL Not available Not available Not available Lab CMP, serum or plasma 2024 025 [facility], [address] [place] [address], [id number], 04/21/2025 09:25:58 CBC w/ auto diff 2024 025 [facility], [address] [place] [address], [id number], 04/21/2025 09:25:57 vitamin D, 25-hydrox y, total, serum 2024 025 [facility], [address] [place] [address], [address], 04/21/2025 09:25:57 lipid panel, blood 2024 025 [facility], [address] [place] [address], [address], 04/21/2025 09:25:58 TSH + free T4, serum 2024 025 [facility], [address] [place] [address], [address], 04/21/2025 09:25:58 hemoglobi n A1c, QN, blood 2024 025 [facility], [address] [place] [address], [address], 04/21/2025 09:25:58 vitamin B12 + folate, serum or blood 2024 025 [facility], [address] [place] [address], [address], 04/21/2025 09:25:57 iron + TIBC + ferritin, serum 2024 025 [facility], [address] [place] [address], [address], 04/21/2025 09:25:57 brca (1+2) mutation analysis, blood or tissue 2023 024 [facility], [address] [place], [address], 05/03/2024 13:32:13 ca 125, serum 2023 024 [email or web address], [address] [place], [address], 05/14/2024 12:18:10 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, blood or tissue 2023 024 [facility], [address] [place], [address], 05/27/2024 12:55:36 hemoglobi n A1c, QN, blood 2023 024 [facility], [address] [place] [address], [address], 03/25/2024 10:31:13 CMP, serum or plasma 2023 024 [facility], [address] [place] [address], [id number], 04/05/2024 11:17:08 CBC w/ auto diff 2023 024 [facility], [address] [place] [address], [address], 03/25/2024 10:31:13 lipid panel, serum 2023 024 [facility], [address] [place] [address], [address], 04/05/2024 11:17:08 tb (M tuberculo sis), ifn-gamma chai, blood 2023 024 [facility], [address] [place] [address], [address], 04/08/2024 11:20:30 TSH + free T4, serum 2023 024 [facility], [address] [place] [address], [address], 04/05/2024 11:17:08 vitamin D, 25-hydrox y, total, serum 2023 024 [facility], [address] [place] [address], [address], 03/25/2024 10:31:14 Referral dermatolo gist referral 2023 024 shaila Pierre MD, [address], [place], [address], 03/26/2024 08:19:46 Procedures None recorded. Surgeries None recorded. Imaging barium swallow study 2023 [facility], [address] [place] [address], [address], 10/15/2024 07:58:05 MAMMO, screening , digital, bilateral - sig fam hx of breast cancer including mother with CHEK2 mutation positive for high risk of breast, ovarian and endometri al cancer 2023 024 [facility], [address] [place] [address] [place], [address], 07/24/2024 08:13:57 Medication Orders bupropion HCl XL 150 mg 24 hr tablet, extended release 2023 024 [email or web address] [id number], [address] [facility], PATRICIA Lozano, [address], 07/09/2024 15:38:18 Patient TargetsNo targets recorded. Patient InstructionsNo instructions recorded. 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 [address] [place], [address], 2024 12:21:51 12/20/19 25 12/20/2024 bri pan study No observ ation record ed. [facility] (Medical Records) [address] [facility], [place], [address], 12/20/2024 13:17:07 Result Notes None recorded. Problems Name Problem SNOMED Code Status Onset Date Resolution Date Notes Provider Name and Address Organization Details Recorded Time Headache 08831177 Active 2017 [facility] 08:18:46 Non-alcoh olic fatty liver 818564003 Active 2017 [facility] 8 08:19:11 Chronic interstit ial cystitis 937741983 Active 2017 Johana Gillis [facility] 8 08:19:21 Lumbar sprain 665149815 Active 2017 Ru Louis, [address] [place], [address], [facility] 8 11:32:47 Impacted cerumen of bilateral ears 215375275727 9108 Active 2021 ROSALIE WATT [address] [place] [address], [address], [facility] 2 08:58:57 Allergic rhinitis 27139657 Active 2021 ROSALIE WATT [address] [place] [address], [address], [facility] 2 09:00:04 Fatigue 57814065 Active 2021 ROSALIE WATT [address] [place] [address], [address], [facility] 2 09:19:58 Pain of bilateral knee joints 415467494677 104 Active 2021 ROSALIE WATT [address] [place] [address], [address], [facility] 2 16:06:41 Acute urinary tract infection 141641754 Active 2022 ROSALIE WATT [address] [place] [address], [address], [facility] 3 12:18:47 Pain of right knee joint 503883874675 100 Active 2022 ROSALIE WATT [address] [place] [address], [address], [facility] 3 12:39:38 Change in skin lesion 798131269 Active 2023 ROSALIE WATT [address] [place] [address], [address], [facility] 4 10:25:30 Anxiety disorder 845829604 Active 2023 ROSALIE WATT [address] [place] [address], [address], [facility] 4 10:27:25 Impaired fasting glycemia 216826919 Active 2023 ROSALIE WATT [address] [place] [address], [address], [facility] 4 10:28:39 Dysphagia 16752827 Active 2023 ROSALIE WATT [address] [place] [address], [address], [facility] 4 12:07:33 Problem Notes None recorded. Procedures Surgical History Date Name Laterality Status Provider Name and Address Organization Details Recorded Time 10/01/20 24 Cerumen Removal completed ROSALIE WATT [address] [place] [address], [address], [facility] 2024 12:15:00 07/07/20 22 Date of Last Pap Smear completed ROSALIE WATT [address] [place] [address], [address], [facility] 02/22/2023 12:57:45 07/07/20 20 Removal of Foreign Body completed ROSALIE WATT [address] [place] [address], [address], [facility] 07/07/2020 16:14:39 03/26/20 19 Removal of foreign body in ear canal completed Ru Louis DO [address] [place] [address], [address], [facility] 03/26/2019 11:04:11 Remove tonsils and adenoids completed ROSALIE WATT [address] [place] [address], [address], [facility] 02/16/2022 09:00:51 Imaging Results None recorded. Procedure Notes None recorded. Medical Equipment None Reported. Allergies No known drug allergies Medications Name Sig Start Date Stop Date Status Note LastModified by Organization Details LastModified Time cyclobenz aprine 10 mg tablet Take 1 tablet every day by oral route at bedtime for 10 days. 07/07 completed Not Available Not Available Not Available azithromy shaunna 250 mg tablet TAKE 2 TABLETS BY MOUTH TODAY, THEN TAKE 1 TABLET DAILY FOR 4 DAYS DIRECTED 04/21 completed Not Available Not Available Not Available [...] Available clobetaso l 0.05 % scalp solution 2024 active as needed Not Available Not Available Not Available bupropion HCl XL 150 mg 24 hr tablet, extended release TAKE 1 TABLET BY MOUTH EVERY DAY 07/09 completed Not Available Not Available Not Available FreeStyle Lite Strips TEST 4 TIMES A DAY 03/06 completed Not Available Not Available Not Available FreeStyle [place] Lite kit USE DIRECTED 4 TIMES A [...] in Arterial blood by Pulse oximetry Systolic And Diastolic Provider Name and Address Organization Details Last Updated DateTime 4 170.18 cm 42.9 kg/m2 084447. 31 g 82 /min 98 % 98 % 122/78 mm[Hg] Tran Butler [facility] 4 10:01:18 Date Recorded Body height Body mass index (BMI) Body weight Heart rate Oxygen saturation Oxygen saturation in Arterial blood by Pulse oximetry Systolic And Diastolic Provider Name and Address Organization Details Last Updated DateTime 5 170.18 cm 42.9 kg/m2 267565. 31 g 70 /min 97 % 97 % 120/74 mm[Hg] Tita Perkins [facility] 5 09:00:17 Date Recorded Body height Body mass index (BMI) Body weight Heart rate Oxygen saturation Oxygen saturation in Arterial blood by Pulse oximetry Systolic And Diastolic Provider Name and Address Organization Details Last Updated DateTime 4 170.18 cm 42.9 kg/m2 004563. 31 g 93 /min 98 % 98 % 128/80 mm[Hg] Tita Perkins [facility] 4 13:20:54 Date Recorded Body height Body mass index (BMI) Body weight Heart rate Oxygen saturation Oxygen saturation in Arterial blood by Pulse oximetry Systolic And Diastolic Provider Name and Address Organization Details Last Updated DateTime 4 170.18 cm 42.9 kg/m2 161031. 31 g 87 /min 98 % 98 % 118/82 mm[Hg] Tran Butler [facility] 4 15:39:34 Social History Question Answer Notes LastModified by Organizat ion Details LastModified Time Tobacco Smoking Status Never Smoker Johana Gillis [facility] 05/29/2018 09:27:49 What Is Your Level Of Caffeine Consumption? Moderate Information not available 02/16/2022 What Was The Date Of Your Most Recent Tobacco Screening? 04/21/2025 [email or web address] Information not available 04/21/2025 Sex: Unknown Functional Status Question Answer Note LastModified by Organizat ion Details LastModified Time Do you use any illicit or recreational drugs? No Information not available 02/16/2022 Do you or have you ever used any other forms of tobacco or nicotine? No Information not available 02/16/2022 What is your level of alcohol consumption? Moderate Information not available 02/16/2022 Mental Status None recorded. Family History Relationship Description Onset Age of this Age Resolved Age Notes LastModified by Organization Details LastModified Time Mother Family history of malignant neoplasm 49 Mother with DCIS at age 49 [email or web address] Not available 12/25/2018 08:57:33 Unspecified Relation Diabetes mellitus [email or web address] Not available 2018 09:24:24 Medical History Condition Response Coronary Artery Disease N Gout N Other N Kidney Stones N Blood Diseases N Blood Transfusion N Breast Cancer N Lung Disease N Depression N COPD [...] Influenza, split virus, quadrivalent, preservative 1 completed Enrike conti [facility] 09/03/2021 08:40:45 COVID-19, mRNA, LNP-S, PF, 100 mcg/0.5mL dose or 50 mcg/0.25mL dose 1 completed Arlene conti [facility] 10/13/2021 08:18:37 COVID-19, mRNA, LNP-S, PF, 100 mcg/0.5mL dose or 50 mcg/0.25mL dose 1 completed Arlene conti [facility] 10/13/2021 08:18:43 Tdap 4 completed Arlene conti [facility] 10/13/2021 08:19:00 COVID-19, mRNA, LNP-S, PF, 100 mcg/0.5mL dose or 50 mcg/0.25mL dose 2 completed Arlene conti [facility] 05/20/2022 08:24:48 Influenza, split virus, quadrivalent, preservative 2 completed Melissa conti [facility] 09/05/2022 15:55:03 Tdap 3 completed Arlene conti [facility] 11/28/2022 08:30:53 Past Encounters Encounter ID Performer Location Encounter Start Date Encounter Closed Date Diagnosis/Indication Diagnosis SNOMED-CT Code Diagnosis ICD10 Code Diagnosis IMO Codes Diagnosis Note [id number] Ru Louis [facility] [address] [facility],[place] [address] 05/29/2018 09:18:09 05/29/2018 10:02:01 Foot pain 54523541 M79.672 will need xray of foot to r/o stress fracture will get very comfortabl e shoes for work will need podiatry referral [id number] Ru Louis [facility] [address], ite [facility], [place] 7 07/06/2018 15:12:31 07/06/2018 17:00:22 Exanthem due to herpes zoster 215635680 B02.8 finish valacy as orderred and then look in to getting the vaccine kaity [id number] Ru Louis [facility] [address] [facility], ite [place] [facility], [place] 7 08/06/2018 11:10:01 08/06/2018 12:17:09 Herpes zoster 9416225 B02.9 resolved no evid of post neuralgia strongly encouraged to get the shingrix vacc [id number] Ru Louis [facility] [address], ite [place], [place] 7 08/27/2018 10:10:48 08/27/2018 11:25:26 Low back pain 534517177 M54.5 3 wk duration and no improvemen t needs xray and will then rechk' must consider uterine? as well given incidence with menses [id number] Ru Louis [facility] [address], [place] [facility], [place] 7 08/31/2018 12:05:40 08/31/2018 13:23:58 Low back pain 478542193 M54.5 3 wk duration and no improvemen t needs xray and will then rechk' must consider uterine? 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.5XXD will cont to have ongoing issue bc she is vulnerable at this time and she will cont PT as it is helping will ask to have the PT extended [id number] Ru Louis [facility] [address] [facility],[place], [place] 7 10/22/2018 10:55:15 10/22/2018 12:19:42 Strain of left trapezius muscle 4135945508 4503160 S29.012A will cont the ROM and give med as described below Pain in ce rvical spine 142478518 M54.2 will treat as follows Ru Louis [facility] [address] [facility], [place] [address] 03/26/2019 10:37:45 03/26/2019 11:51:56 Impacted cerumen 14629894 H61.22 [id number] Ru Louis [facility] [address] [facility], [place] [address] 07/07/2020 15:58:13 07/07/2020 16:44:53 Foreign body of foot 280243708 S99.822D sliver removed successful ly without blood loss or pain patient tolerated procedure well [id number] Ru Loius [facility] [address] [facility], [place] [address] 02/16/2022 08:46:35 02/16/2022 09:24:01 Active or passive immunization 094225514 Z23 advisedTDA P up to date Adult heal th examination 152501688 Z00.00 BP is excellentw ill set up with titers for school Fatigue 40969791 R53.83 will fu with complete blood work panel [id number] Ru Louis [facility] [address] [facility], [place] [address] 03/21/2022 15:08:10 03/21/2022 16:28:09 Tuberculosis screening 289158981 Z11.1 [id number] Ru Louis [facility] [address] [facility], [place] [address] 03/23/2022 11:51:34 03/23/2022 13:50:04 Tuberculosis screening 555149252 Z11.1 [id number] Ru Louis [facility] [address] [facility], [place] [address] 05/25/2022 08:57:47 05/25/2022 13:21:15 Tuberculosis screening 117428383 Z11.1 [id number] Ru Louis [facility] [address] [facility] [place] [facility] [place] [address] 05/27/2022 09:19:53 05/27/2022 10:02:55 Tuberculosis screening 397478485 Z11.1 [id number] Ru Louis [facility] [address] [facility] [place] [facility] [place] [address] 11/02/2022 15:31:49 11/02/2022 16:19:27 Pain of bilateral knee joints 7432749289 08327 M25.561 [place] [id number] Ru Moratayaleslie [facility] [address] [facility], [place] [facility] [place] [address] 02/22/2023 14:11:00 02/22/2023 15:21:06 Pain of right knee joint 3600306376 75558 M25.561 MRI [place] [id number] Ru Louis [facility] [address] 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 [place], [place] [facility] [place] [address] 03/25/2024 09:48:55 03/25/2024 14:06:06 Active or passive immunization 927773755 Z23 advisedTDA P up to date Adult heal th examination 390778313 Z00.00 BP is excellent Depression screening 171 261243 Z13.31 negative Body mass index 40+ - severely obese 080970336 Z68.41 discussed options Change in skin lesion 39 6229482 L98.9 will set up with dermatolog y Anxiety disorder 3097744 06 F41.9 will set up with Impaired f asting glycemia 689746209 R73.01 Tuberculos is screening 831811111 Z11.1 will set up with lab work [id number] Ru Louis [facility] [address],[place] [address] 05/03/2024 13:17:52 05/03/2024 13:50:09 Family history of breast cancer 528802335 Z80.3 will set up with testing given family historywil l give paperwork, [id number] Ru Louis [facility] [address],[place] [address] 07/09/2024 15:24:25 07/09/2024 16:28:33 Screening mammography of bilateral breasts 3722397340 91273 Z12.31 set up MM for patient Family his tory of breast cancer 821288758 Z80.3 reviewed [id number] Ru Louis [address],[place] [address] 2024 11:51:08 2024 13:18:55 Dysphagia 01968952 R13.12 will set up with barium swallow Impacted c erumen of bilateral ears 4254974037 740554 H61.23 bilateral, no lavage, used a curette to remove wax [id number] Ru Louis [address],[place] [address] 04/21/2025 08:55:21 04/21/2025 09:45:23 Depression screening 966624534 Z13.31 negative General ex amination of patient 756135935 Z00.00 688593 BP is excellent Body mass index 40+ - severely obese 517224068 Z68.41 755656 discussed optionsis getting outside zepbound injections Health Concerns Section Related Observation LastModified by Organization Aby ls LastModified Time None Recorded Concern Status LastModified by Organization Details LastModified Time None Recorded Advance Directives Directive None Recorded Payers Insurance Date Sequence Insurance Name Policy Number Policy Osborne Covered Member ID Osborne Member ID Guarantor Name 04/18/2025 1 MIRNA [id number] Arlene Blanton [id number] Arlene Flores 06/13/2023 1 [facility] [id number] Arlene Blanton [id number] Arlene Flores 03/06/2023 [facility] Arlene Flores 06/13/2023 [facility] Arlene Flores 03/25/2024 1 [facility] (O) [id number] Arlene Blanton [id number] Arlene Flores Notes Date Note Type Note Provider Name and Address Organization Details Recorded Time 4 text/html Annual WellnessReported by PatientSocial/Behaviora l HistoryFor diet and nutrition, patient reportshealthy diet. For fracture risk, patient reportsno history of fractures,no recent explained fracture,no sudden unexplained fractures, andno previous musculoskeletal injuries. For physical activity, patient reportsexercises on a regular basis,recent increase in physical activity, andgood physical condition. For additional lifestyle factors, patient reportsno tobacco use,no alcohol intake, andstopped drinking alcohol.Mental Status:For depression risk, patient reportsnever feels sad, empty, or tearful,no loss of interest in activities,no significant changes in weight,no sleep disturbances or insomnia,no agitation,no loss of energy,no feelings of worthlessness or guilt,no thoughts of suicide,no history of depression, andno history of mood disorders.Functional AbilityFor hearing, patient reportsno loss of hearing. For vision, patient reportsno vision problems. 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 agreed to screening for the MM patient given positive mutations and sig fam hx of breast cancer brigitte with her mother RADHA put into [facility] to start her screenings ROSALIE WATT [address] [place], [address], [facility] 07/09/2024 16:21:11 4 text/html ROS as noted in the HPI ear lavage the patient reports that she [...] with hiccups, swallowing, dyspepsia ROSALIE WATT [address] [place], [address], [facility] 2024 12:22:01 5 text/html Annual WellnessReported by PatientSocial/Behaviora l HistoryFor diet and nutrition, patient reportshealthy diet,discussed vitamin and supplement use,discussed portion control,discussed maintaining calcium balance, anddiscussed diet improvement. For fracture risk, patient reportsno history of fractures,no recent explained fracture,no sudden unexplained fractures, andno previous musculoskeletal injuries. For physical activity, patient reportsexercises on a regular basis,recent increase in physical activity, andgood physical condition. For additional lifestyle factors, patient reportsno tobacco useanddrinks alcohol (mild-moderate).Mental Status:For depression risk, patient reportsnever feels sad, empty, or tearful,no loss of interest in activities,no significant changes in weight,no sleep disturbances or insomnia,no agitation,no loss of energy,no feelings of worthlessness or guilt,no thoughts of suicide,no history of depression, andno history of mood disorders.Functional AbilityFor hearing, patient reportsno loss of hearing. For vision, patient reportsno vision problems.ROS as noted in the HPI last pap smear was last year in the summer, normal exam ROSALIE WATT [address] [place], [address], [facility] 04/21/2025 09:32:40 OBGyn Episode No OBEpisode recorded.
[2025-09-17 09:26] LABS: MANUAL DIFF FLAG NO
[2025-09-17 10:15] LABS: Hematocrit 37.5 % (37.0-47.0); Hemoglobin 12.5 g/dl (12.0-16.0); Imm Gran Abs Auto 0.02 X10*3/uL (0.00-0.03); Imm Gran Pct Auto 0.4 % (0.0-0.4); Lymphocytes Absolute Auto 1.6 X10*3/uL (1.2-4.9); Mean Corpuscular HGB Conc 33.3 g/dl (31.0-35.0); Mean Corpuscular Hemoglobin 28.7 pg (27.0-33.0); Mean Corpuscular Volume 86.0 fL (80.0-98.0); NRBC Abs Auto 0.000 X10*3/uL (0.0-0.012); NRBC Pct Auto 0.0 /100WBC (0.0-0.2); Platelet Count 317 X10*3/uL (160-400); Red Blood Count 4.36 X10*6/uL (4.20-5.50); White Blood Count 5.3 X10*3/uL (4.8-10.8)
[2025-09-17 11:00] LABS: Alanine Aminotransferase 36 U/L (0-31); Albumin Level 4.3 g/dL (3.5-5.0); Alkaline Phosphatase 66 U/L (39-117); Anion Gap 12 (12-20); Aspartate Amino Transferase 31 U/L (5-31); Blood Urea Nitrogen 10 mg/dL (9-16); Calcium 9.0 mg/dL (8.4-10.2); Carbon Dioxide 25 mmol/L (22-29); Chloride 107 mmol/L (96-108); Cholesterol 172 mg/dL (<200); Estimated Glomerular Filt Rate > 60; HDL Cholesterol 33 mg/dL (>40); Iron 95 mcg/dL (30-160); Percent Iron Saturation 31 % (15-50); Potassium 4.2 mmol/L (3.3-5.1); Sodium 140 mmol/L (135-145); Total Iron Binding Capacity 302 mcg/dL (228-428); Total Protein 6.7 g/dL (6.5-8.0); Triglycerides 123 mg/dL (<150); Unsaturated Iron Binding 207 ug/dL
[2025-09-17 11:23] LABS: Free T4 (Free Thyroxine) 0.85 ng/dL (0.71-1.85); Thyroid Stimulating Hormone 0.91 uIU/mL (0.32-4.0)
[2025-09-17 11:31] LABS: Folate 7.3 ng/mL (> or = 4.0); Vitamin B12 750 pg/mL (200-900)
[2025-09-21 04:13] LABS: Quantiferon TB Gold Plus 1 NEGATIVE (NEGATIVE); TB Test (QFT) Mitogen -Nil 8.46 IU/mL; TB Test (QFT) Nil 0.02 IU/mL; TB Test (QFT) Plus TB1 -Nil 0.00 IU/mL; TB Test (QFT) Plus TB2 -Nil 0.00 IU/mL
== END 2025-09-17 08:28 | disposition home or self-care (01) ==
LOC: HO.LAB 08:27
PROVIDERS: PCP Physician Assistant; Visit Provider Physician Assistant
DX: Z00.00 Encounter for general adult medical examination without abnormal findings (principal); Z11.1 Encounter for screening for respiratory tuberculosis; Z13.6 Encounter for screening for cardiovascular disorders; Z13.1 Encounter for screening for diabetes mellitus; Z13.29 Encounter for screening for other suspected endocrine disorder
CPT/HCPCS: 36415; 80053; 80061; 82306; 82607; 82746; 83036; 83540; 84439; 84443; 85025; 86480

== ENCOUNTER 2025-10-11 10:47 | Outpatient (REF) | payer OTHER, SELFPAY ==
--- OUTSIDE RECORDS SUMMARY | 2025-10-11 10:49 | XMS_ITS | Continuity of Care Document ---
Author Organization [facility], [facility] Address [address] [place] [address] [place] [address] Care Team Providers Care Clinical Manager Name Role Phone ELSY KING [employer] Supervisor [phone] Assessment No assessment recorded. Plan of Treatment Reminders Order Date Submit Date Provider Last Modified By Organization Details Last Modified Time Details Appointments ANNUAL EXAM 2025 09:00A ROSALIE DEL REAL Not available Not available Not available Lab estradiol , serum 2024 025 [facility], [address] [place] [address], [id number], 10/10/2025 11:55:19 prolactin , serum 2024 025 [facility], [address] [place] [place] [address], [id number], 10/10/2025 11:55:19 dhea-sulf ate, serum 2024 025 [facility], [address] [place] [place] [address], [id number], 10/10/2025 11:55:19 testoster one, total, serum 2024 025 [facility], [address] [place] [address], [address], 10/10/2025 11:55:19 estrogen, total, serum 2024 025 [facility], [address] [place] [address], [id number], 10/10/2025 11:55:20 lh + FSH, serum 2024 025 [facility], [address] [place] [place] [address], [address], 10/10/2025 11:55:20 progester one, free + total, serum 2024 025 [facility], [address] [place] [place] [address], [id number], 10/10/2025 11:55:19 Referral None recorded. Procedures None recorded. Surgeries None recorded. Imaging US, pelvis, transabdo carson + transvagi nal 2024 025 [facility] (Imaging), [address] [place] [address], [id number], 10/11/2025 04:02:11 Medication Orders None recorded. Patient TargetsNo targets recorded. Patient InstructionsNo instructions recorded. Reason for Referral None Reported. Results Created Date Observation Date Name Description Value Unit Range Abnormal Flag Note LastModifiedBy Organization Detail LastModifiedTime Result Notes None recorded. Problems Name Problem SNOMED Code Status Onset Date Resolution Date Notes Provider Name and Address Organization Details Recorded Time Headache 35120293 Active 2017 ROSALIE WATT [address] [place] [address], [phone], [facility] 5 12:00:50 Non-alcoh olic fatty liver 931900375 Active 2017 Johana conti [facility] 8 08:19:11 Chronic interstit ial cystitis 533779669 Active 2017 Johana conti [facility] 8 08:19:21 Lumbar sprain 519956260 Active 2017 Ru Louis DO [address] [place], [address], [facility] 8 11:32:47 Impacted cerumen of bilateral ears 930233462402 9108 Active 2021 ROSALIE WATT [address] [place] [address], [address], [facility] 2 08:58:57 Allergic rhinitis 49118605 Active 2021 ROSALIE WATT [address] [place] [address], [address], [facility] 2 09:00:04 Fatigue 40212500 Active 2021 ROSALIE WATT [address] [place] [address], [address], [facility] 2 09:19:58 Pain of bilateral knee joints 642984692563 104 Active 2021 ROSLAIE WATT [address] [place] [address], [address], [facility] 2 16:06:41 Acute urinary tract infection 597322684 Active 2022 ROSALIE WATT [address] [place] [address], [address], [facility] 5 18:15:38 Pain of right knee joint 164109075429 100 Active 2022 ROSALIE WATT [address] [place] [address], [address], [facility] 3 12:39:38 Change in skin lesion 779710255 Active 2023 ROSALIE WATT [address] [place] [address], [address], [facility] 4 10:25:30 Anxiety disorder 381114278 Active 2023 ROSALIE WATT [address] [place] [address], [address], [facility] 4 10:27:25 Impaired fasting glycemia 523700640 Active 2023 ROSALIE WATT [address] [place], [address], [facility] 4 10:28:39 Dysphagia 84938449 Active 2023 ROSALIE WATT [address] [place], [address], [facility] 4 12:07:33 Dysmenorr hea 980226496 Active 2024 ROSALIE WATT [address] [place] [address], [address], [facility] 5 11:48:47 Intoleran t of cold 84564310 Active 2024 ROSALIE WATT [address] [place] [address], [address], [facility] 5 12:00:09 Chill 69306045 Active 2024 ROSALIE WATT [address] [place] [address], [address], [facility] 5 12:00:26 Night sweats 12195244 Active 2024 ROSALIE WATT [address] [place] [address], [address], [facility] 5 12:00:37 Problem Notes None recorded. Procedures Surgical History Date Name Laterality Status Provider Name and Address Organization Details Recorded Time 10/01/20 24 Cerumen Removal completed ROSALIE WATT [address] [place] [address], [address], [facility] 2024 12:15:00 07/07/20 22 Date of Last Pap Smear completed ROSALIE WATT [address] [place] [address], [address], [facility] 02/22/2023 12:57:45 07/07/20 20 Removal of Foreign Body completed ROSALIE WATT [address] [place] [address], [address], [facility] 07/07/2020 16:14:39 03/26/20 19 Removal of foreign body in ear canal completed Ru Louis DO [address] [place], [address], [facility] 03/26/2019 11:04:11 Remove tonsils and adenoids completed ROSALIE WATT [address] [place], [address], [facility] 02/16/2022 09:00:51 Imaging Results None recorded. Procedure [...] completed Not Available Not Available Not Available sulfameth oxazole 800 mg-trimet hoprim 160 mg tablet Take 1 tablet every 12 hours by oral route as directed for 5 days. 2024 active Not Available Not Available Not Avai lable amoxicill in 875 mg tablet TAKE 1 [...] Not Available Not Available Not Available FreeStyle [place] Lite kit USE DIRECTED 4 TIMES A DA Y 03/06 completed Not Available Not Available Not Available Pre-Raul Multivita mins with Minerals 27 mg-1 mg-300 mg capsule Take 1 capsule every day by oral route. 03/25 completed Not Available Not Available Not Available B12 active Not Available Not Availa ble Not Available Vitamin D2 active Not Available Not Available Not Available Vitals None Recorded Social History Question Answer Notes LastModified by Organizat ion Details LastModified Time Tobacco Smoking Status Never Smoker Johana Gillis [facility] 05/29/2018 09:27:49 What Is Your Level Of Caffeine Consumption? Moderate Information not available 02/16/2022 What Was The Date Of Your Most Recent Tobacco Screening? 04/21/2025 Information not available 04/21/2025 Sex: Unknown Functional [...] Immunizations Vaccine Type Date Status Note Provider Nam e and Address Organization Details Recorded Time Influenza, split virus, quadrivalent, preservative 1 completed Enrike conti [facility] 09/03/2021 08:40:45 COVID-19, mRNA, LNP-S, PF, 100 mcg/0.5mL dose or 50 mcg/0.25mL dose 1 completed Arlene conti [facility] 10/13/2021 08:18:37 COVID-19, mRNA, LNP-S, PF, 100 mcg/0.5mL dose or 50 mcg/0.25mL dose 1 completed Arlene conti [facility] 10/13/2021 08:18:43 Tdap 4 completed Arlene conti [facility] 10/13/2021 08:19:00 COVID-19, mRNA, LNP-S, PF, 100 mcg/0.5mL dose or 50 mcg/0.25mL dose 2 completed Arlene conti [facility] 05/20/2022 08:24:48 Influenza, split virus, quadrivalent, preservative 2 completed Melissa conti [facility] 09/05/2022 15:55:03 Tdap 3 completed Arlene conti [facility] 11/28/2022 08:30:53 Past Encounters Encounter ID Performer Location Encounter Start Date Encounter Closed Date Diagnosis/Indication Diagnosis SNOMED-CT Code Diagnosis ICD10 Code Diagnosis IMO Codes Diagnosis Note [id number] ROSALIE WATT [facility] [address] [facility] [address] 10/10/2025 09:01:15 10/10/2025 12:04:58 Dysmenorrhea 655058302 N94.6 42726 Intolerant of cold 03221 000 R68.89 719328 Chill 55272409 R68.83 785996 Night sweats 11102082 R6 1 45448 Headache 69212868 R51.9 0705163 Health Concerns Section Related Observation LastModified by Organization Detai ls LastModified Time None Recorded Concern Status LastModified by Organization Details LastModified Time None Recorded Payers Encounter Date Sequence Insurance Name Policy Number Policy Osborne Covered Member ID Osborne Member ID Guarantor Name 10/10/2025 1 MIRNA [id number] Arlene Blanton [id number] Arlene Flores Notes Date Note Type Note Provider Name a nd Address Organization Details Recorded Time 5 text/html ROS as noted in the HPI c/o hormonal changes? bloating, hot flashes, brain fog, dysmenorrhea The patient is participating in this appointment via telemedicine communication with a phone call (audio) only.The patient consents to use of these platforms in place of an in-person appointment due to either patient being acutely ill (being in office would put our staff and our other patients at risk) or unable to make an in-person appointment due to either lack of transportation, severe medical condition, immunocompromised, etc.The appointment took place over a phone call (audio) due to patient's inability to access or use an audio and visual platform. 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
--- OUTSIDE RECORDS SUMMARY | 2025-10-11 10:49 | XMS_ITS | Data Portability ---
Author Organization [facility], Telehealth Patient Home Address [address] [place] [address] Care Team Providers Care Billboard Mechanic Name Role Phone ELSY KING Superintendent Quarry Assessment No assessment recorded. Plan of Treatment Reminders Order Date Submit Date Provider Last Modified By Organization Details Last Modified Time Details Appointments ANNUAL EXAM 2025 09:00A ROSALIE DEL REAL Not available Not available Not available Lab estradiol , serum 2024 025 [facility], [address] [place] [address], [id number], 10/10/2025 11:55:19 prolactin , serum 2024 025 [facility], [address] [place] [address], [address], 10/10/2025 11:55:19 dhea-sulf ate, serum 2024 025 [facility], [address] [place] [address], [address], 10/10/2025 11:55:19 testoster one, total, serum 2024 025 [facility], [address] [place] [address], [address], 10/10/2025 11:55:19 estrogen, total, serum 2024 025 [facility], [address] [place] [address], [address], 10/10/2025 11:55:20 lh + FSH, serum 2024 [facility], [address] [place] [address], [address], 10/10/2025 11:55:20 progester one, free + total, serum 2024 [facility], [address] [place] [address], [address], 10/10/2025 11:55:19 CMP, serum or plasma 2024 [facility], [address] [place] [address], [address], 04/21/2025 09:25:58 CBC w/ auto diff 2024 [facility], [address] [place] [address], [address], 04/21/2025 09:25:57 vitamin D, 25-hydrox y, total, serum 2024 [facility], [address] [place] [address], [address], 04/21/2025 09:25:57 lipid panel, blood 2024 025 [facility], [address] [place] [address], [address], 04/21/2025 09:25:58 TSH + free T4, serum 2024 025 [facility], [address] [place] [address], [address], 04/21/2025 09:25:58 hemoglobi n A1c, QN, blood 2024 025 [facility], [address] [facility], [place], [address], 04/21/2025 09:25:58 vitamin B12 + folate, serum or blood 2024 025 [facility], [address] [place], [address], 04/21/2025 09:25:57 iron + TIBC + ferritin, serum 2024 025 [facility], [address] [place] [address], [address], 04/21/2025 09:25:57 brca (1+2) mutation analysis, blood or tissue 2023 024 [facility], [address] [place], [address], 05/03/2024 13:32:13 ca 125, serum 2023 024 [facility], [address] [place], [address], 05/14/2024 12:18:10 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 Procedures None recorded. Surgeries None recorded. Imaging US, pelvis, transabdo carson + transvagi nal 2024 025 [facility] (Imaging), [address] [place] [address], [address], 10/11/2025 04:02:11 barium swallow study 2023 024 [facility] Central Scheduling, [address] [place] [address], [address], 10/15/2024 07:58:05 MAMMO, screening , digital, bilateral - sig fam hx of breast cancer including mother with CHEK2 mutation positive for high risk of breast, ovarian and endometri al cancer 2023 024 [facility], [address] [place] [address] [place], [address], 07/24/2024 08:13:57 Medication Orders None recorded. Patient TargetsNo targets recorded. Patient InstructionsNo instructions recorded. Reason for Referral None Reported. Results Created Date Observation Date Name Description Value Unit Range Abnormal Flag Note LastModifiedBy Organization Detail LastModifiedTime 08/01/2007/19/2024 MAMMO , scree karmen, digit al, bilat eral No observ ation record ed. [address] [place], [address], 2024 12:21:51 12/20/19 25 12/20/2024 bri apn study No observ ation record ed. [facility] (Medical Records) [address] [place], [address], 12/20/2024 13:17:07 Result Notes None recorded. Problems Name Problem SNOMED Code Status Onset Date Resolution Date Notes Provider Name and Address Organization Details Recorded Time Headache 68418447 Active 2017 ROSALIE WATT [address] [place], [address], [facility] 5 12:00:50 Non-alcoh olic fatty liver 137223948 Active 2017 [facility] 8 08:19:11 Chronic interstit ial cystitis 300076446 Active 2017 Johana conti [facility] 8 08:19:21 Lumbar sprain 274886975 Active 2017 Ru Louis DO [address] [place], [address], [facility] 8 11:32:47 Impacted cerumen of bilateral ears 357397414531 9108 Active 2021 ROSALIE WATT [address] [place], [address], [facility] 2 08:58:57 Allergic rhinitis 64318709 Active 2021 ROSALIE WATT [address] [place], [address], [facility] 2 09:00:04 Fatigue 01419149 Active 2021 ROSALIE WATT [address] [place], [address], [facility] 2 09:19:58 Pain of bilateral knee joints 782237098302 104 Active 2021 ROSALIE WATT [address] [place], [address], [facility] 2 16:06:41 Acute urinary tract infection 408739365 Active 2022 ROSALIE WATT [address] [place], [address], [facility] 5 18:15:38 Pain of right knee joint 121898019095 100 Active 2022 ROSALIE WATT [address] [place], [address], [facility] 3 12:39:38 Change in skin lesion 425846472 Active 2023 ROSALIE WATT [address] [place], [address], [facility] 4 10:25:30 Anxiety disorder 901092943 Active 2023 ROSALIE WATT [address] [place], [address], [facility] 4 10:27:25 Impaired fasting glycemia 680770392 Active 2023 ROSALIE WATT [address] [place] [address], [address], [facility] 4 10:28:39 Dysphagia 01795284 Active 2023 ROSALIE WATT [address] [place] [address], [address], [facility] 4 12:07:33 Dysmenorr hea 857510798 Active 2024 ROSALIE WATT [address] [place] [address], [address], [facility] 5 11:48:47 Intoleran t of cold 98433234 Active 2024 ROSALIE WATT [address] [place] [address], [address], [facility] 5 12:00:09 Chill 28614795 Active 2024 ROSALIE WATT [address] [place] [address], [address], [facility] 5 12:00:26 Night sweats 69456968 Active 2024 ROSALIE WATT [address] [place] [address], [address], [facility] 5 12:00:37 Problem Notes None recorded. Procedures Surgical History Date Name Laterality Status Provider Name and Address Organization Details Recorded Time 10/01/20 24 Cerumen Removal completed ROSALIE WATT [address] [place] [address], [address], [facility] 2024 12:15:00 07/07/20 22 Date of Last Pap Smear completed ROSALIE WATT [address] [place] [address], [address], [facility] 02/22/2023 12:57:45 07/07/20 20 Removal of Foreign Body completed ROSALIE WATT [address] [place] [address], [address], [facility] 07/07/2020 16:14:39 03/26/20 19 Removal of foreign body in ear canal completed Ru Louis DO [address] [place], [address], [facility] 03/26/2019 11:04:11 Remove tonsils and adenoids completed ROSALIE WATT [address] [place], [address], [facility] 02/16/2022 09:00:51 Imaging [...] Not Available Not Available Not Available FreeStyle [place] Lite kit USE DIRECTED 4 TIMES A [...] (BMI) Body weight Heart rate Oxygen saturation Systolic And Diastolic Provider Name and Address Organization Details Last Updated DateTime 5 170.18 cm 42.9 kg/m2 305588. 31 g 70 /min 97 % 120/74 mm[Hg] [facility] 5 09:00:17 Date Recorded Body height Body mass index (BMI) Body weight Heart rate Oxygen saturation Systolic And Diastolic Provider Name and Address Organization Details Last Updated DateTime 4 170.18 cm 42.9 kg/m2 186138. 31 g 93 /min 98 % 128/80 mm[Hg] [facility] 4 13:20:54 Date Recorded Body height Body mass index (BMI) Body weight Heart rate Oxygen saturation Systolic And Diastolic Provider Name and Address Organization Details Last Updated DateTime 4 170.18 cm 42.9 kg/m2 412198. 31 g 87 /min 98 % 118/82 mm[Hg] Tran Butler [facility] 4 15:39:34 Social History Question Answer Notes LastModified by [employer] Unique Details LastModified Time Tobacco Smoking Status Never Smoker [facility] 05/29/2018 09:27:49 What Is Your Level Of Caffeine Consumption? Moderate Information not available 02/16/2022 What Was The Date Of Your Most Recent Tobacco Screening? 04/21/2025 [email or web address] Information not available 04/21/2025 Sex: Unknown Functional Status Question Answer Note LastModified by Organizat setObject Details LastModified Time Do you use any [...] N Blood Transfusion N Breast Cancer N COPD N Depression N Lung Disease N Defects or Inherited Disease N Anxiety Disorder N Muscle, Joint, or Bone Problems N Obesity N Vision or Eye Problems N Arthritis N Polyps N Infertility N Mental Disorder N Cancer N Varicosities N Stroke N Endometriosis N Bladder or Kidney Problems N High Cholesterol N Liver Disease N Headaches N Fibromyalgia N Kidney Disease N Allergies/Hayfever N Heart [...] virus, quadrivalent, preservative 1 completed Enrike conti [facility] 09/03/2021 08:40:45 COVID-19, mRNA, LNP-S, PF, 100 mcg/0.5mL dose or 50 mcg/0.25mL dose 1 completed Arlene conti [facility] 10/13/2021 08:18:37 COVID-19, mRNA, LNP-S, PF, 100 mcg/0.5mL dose or 50 mcg/0.25mL dose 1 completed Arlene conti [facility] 10/13/2021 08:18:43 Tdap 4 completed Arlene conti [facility] 10/13/2021 08:19:00 COVID-19, mRNA, LNP-S, PF, 100 mcg/0.5mL dose or 50 mcg/0.25mL dose 2 completed Arlene conti [facility] 05/20/2022 08:24:48 Influenza, split virus, quadrivalent, preservative 2 completed Melissa conti [facility] 09/05/2022 15:55:03 Tdap 3 completed Arlene conti [facility] 11/28/2022 08:30:53 Past Encounters Encounter ID Performer Location Encounter Start Date Encounter Closed Date Diagnosis/Indication Diagnosis SNOMED-CT Code Diagnosis ICD10 Code Diagnosis IMO Codes Diagnosis Note [id number] Ru Louis [facility] [address] [place] [address] [place] [address] 05/29/2018 09:18:09 05/29/2018 10:02:01 Foot pain 88136988 M79.672 will need xray of foot to r/o stress fracture will get very comfortabl e shoes for work will need podiatry referral [id number] Ru Louis [facility] [address],[place] [address] 07/06/2018 15:12:31 07/06/2018 17:00:22 Exanthem due to herpes zoster 670418795 B02.8 finish valacyc as orderred and then look in to getting the vaccine [facility] [id number] Ru Louis [facility] [address],[place] [address] 08/06/2018 11:10:01 08/06/2018 12:17:09 Herpes zoster 0011020 B02.9 resolved no evid of post neuralgia strongly encouraged to get the shingrix vacc [id number] Ru Louis [facility] [address],[place] [address] 08/27/2018 10:10:48 08/27/2018 11:25:26 Low back pain 283876205 M54.5 3 wk duration and no improvemen t needs xray and will then rechk' must consider uterine? as well given incidence with menses [id number] Ru Louis DO [facility] Internal [address],[place] [address] 08/31/2018 12:05:40 08/31/2018 13:23:58 Low back pain 939695073 M54.5 3 wk duration and no improvemen t needs xray and will then rechk' must consider uterine? as well given incidence with menses [id number] Ru Louis [facility] Medicine [address] [place] [address],[place] [address] 10/08/2018 11:03:05 10/08/2018 11:39:09 Lumbar sprain 536608401 S33.5XXD will cont to have ongoing issue bc she is vulnerable at this time and she will cont PT as it is helping will ask to have the PT extended [id number] Ru Naeem Louis [facility] [address] [facility] [address],[place] [address] 10/22/2018 10:55:15 10/22/2018 12:19:42 Strain of left trapezius muscle 4858421488 5801457 S29.012A will cont the ROM and give med as described below Pain in ce rvical spine 210096319 M54.2 will treat as follows Ru Louis [facility] [address] [facility],[place] [address] 03/26/2019 10:37:45 03/26/2019 11:51:56 Impacted cerumen 36124842 H61.22 [id number] Ru Naeem Louis [facility] [address] [facility],[place] [address] 07/07/2020 15:58:13 07/07/2020 16:44:53 Foreign body of foot 666350940 S99.822D sliver removed successful ly without blood loss or pain patient tolerated procedure well [id number] Ru Louis [facility] [address] [facility],[place] [address] 02/16/2022 08:46:35 02/16/2022 09:24:01 Active or passive immunization 857398126 Z23 advisedTDA P up to date Adult heal th examination 175405456 Z00.00 BP is excellentw ill set up with titers for school Fatigue 53176817 R53.83 will fu with complete blood work panel [id number] Ru Louis [facility] Internal Medicine [address] [facility],[place] [address] 03/21/2022 15:08:10 03/21/2022 16:28:09 Tuberculosis screening 931047338 Z11.1 [id number] Ru Louis [facility] [address] [facility],[place] [address] 03/23/2022 11:51:34 03/23/2022 13:50:04 Tuberculosis screening 833913314 Z11.1 [id number] Ru Moratayaleslie [facility] [address] [facility] [address],[place] [address] 05/25/2022 08:57:47 05/25/2022 13:21:15 Tuberculosis screening 729782844 Z11.1 [id number] Ru Hartley Heriberto [facility] [address] [facility] [address],[place] [address] 05/27/2022 09:19:53 05/27/2022 10:02:55 Tuberculosis screening 162710259 Z11.1 [id number] Ru Moratayaleslie [facility] [address] [facility] [address],[place] [address] 11/02/2022 15:31:49 11/02/2022 16:19:27 Pain of bilateral knee joints 2183803249 26532 M25.561 [place] [id number] Ru AndersonViry Louis [facility] Internal Medicine [address] [facility] [address],[place] [address] 02/22/2023 14:11:00 02/22/2023 15:21:06 Pain of right knee joint 7552918432 80147 M25.561 MRI [place] [id number] Ru Louis [facility] [address] [place] [address] 03/06/2023 13:35:43 03/06/2023 17:13:19 Adult health examination 022829651 Z00.00 BP is excellentn eed 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 [id number] Ru AndersonViry Louis [facility] Medicine [address] [facility] [address] [place] [address] 03/25/2024 09:48:55 03/25/2024 14:06:06 Active or passive immunization 026479969 Z23 advisedTDA P up to date Adult heal th examination 256518210 Z00.00 BP is excellent Depression screening 171 971520 Z13.31 negative Body mass index 40+ - severely obese 416647044 Z68.41 discussed options Change in skin lesion 39 9204321 L98.9 will set up with dermatolog y Anxiety disorder 8457083 06 F41.9 will set up with Impaired f asting glycemia 544417373 R73.01 Tuberculos is screening 676716583 Z11.1 will set up with lab work [id number] Ru Louis [facility] [address] [facility], [place] [address] 05/03/2024 13:17:52 05/03/2024 13:50:09 Family history of breast cancer 667267525 Z80.3 will set up with testing given family historywil sal give paperwork, [id number] Ru Louis [facility] [address] [facility], [place] [address] 07/09/2024 15:24:25 07/09/2024 16:28:33 Screening mammography of bilateral breasts 8559447264 19526 Z12.31 set up MM for patient Family his tory of breast cancer 405175866 Z80.3 reviewed [id number] Ru Louis [facility] [address] [facility], [place] [address] 2024 11:51:08 2024 13:18:55 Dysphagia 84085186 R13.12 will set up with barium swallow Impacted c erumen of bilateral ears 8512742859 925735 H61.23 bilateral, no lavage, used a curette to remove wax [id number] Ru Louis [facility] [address] [facility],[place] [address] 04/21/2025 08:55:21 04/21/2025 09:45:23 Depression screening 651408068 Z13.31 negative General ex amination of patient 108384896 Z00.00 955503 BP is excellent Body mass index 40+ - severely obese 376629912 Z68.41 153848 discussed optionsis getting outside zepbound injections [id number] ROSALIE WATT [facility] Internal Medicine [address] [facility] [place] [address] 10/10/2025 09:01:15 10/10/2025 12:04:58 Dysmenorrhea 558087288 N94.6 12180 Intolerant of cold 99690 000 R68.89 [id number] Chill 39275819 R68.83 501274 Night sweats 34673593 R6 1 01799 Headache 45011587 R51.9 7083982 Health Concerns Section Related Observation LastModified by Organization Detai ls LastModified Time None Recorded Concern Status LastModified by Organization Details LastModified Time None Recorded Advance Directives Directive None Recorded Payers Insurance Date Sequence Insurance Name Policy Number Policy Osborne Covered Member ID Osborne Member ID Guarantor Name 10/10/2025 1 [employer] [id number] Arlene Blanton [id number] Arlene Flores 06/13/2023 1 [facility] [id number] Arlene Blanton [id number] Arlene Flores 03/06/2023 [facility] Arlene Flores 06/13/2023 [facility] Arlene Flores 03/25/2024 1 [facility] (O) [id number] Arlene Blanton [id number] Arlene Flores Notes Date Note Type Note Provider Name and Address Organization Details Recorded Time 4 text/html ROS as noted in the [...] breast cancer with mother ROSALIE WATT [address] [facility], [place], [address], [facility] 05/03/2024 13:48:02 4 text/html ROS as noted in the HPI 1 mos f/u the pt came in for a f/u for her BWpositive for CHEK2 Mutation, discussed results with her, already has a PULMONARY 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 SPECIALIST/OB f/u agreed to screening for the MM patient given positive mutations and sig fam hx of breast cancer brigitte with her mother RADHA put into [facility] to start her screenings ROSALIE WATT [address] [place], [address], [facility] 07/09/2024 16:21:11 4 text/html ROS [...] with hiccups, swallowing, dyspepsia ROSALIE WATT [address] [place], [address], [facility] 2024 12:22:01 5 text/html Annual [...] the summer, normal exam ROSALIE WATT [address] [place], [address], [facility] 04/21/2025 09:32:40 5 text/html ROS as noted in the [...] check (her son is 3 years) and PULMONARY DISEASE SPECIALIST declined need for testing when she brought concerns about newer menstrual symptoms prior to this will fu with pt when work up is complete ROSALIE WATT [address] [place] [address], [place], [address], [facility] 10/10/2025 12:00:58 OBGyn Episode No OBEpisode recorded.
[2025-10-14 12:19] LABS: Follicle Stimulating Hormone 4.4 mIU/mL
== END 2025-10-11 10:48 | disposition home or self-care (01) ==
LOC: HO.LAB 10:47
PROVIDERS: PCP Internal Medicine; Visit Provider Physician Assistant
DX: N94.6 Dysmenorrhea, unspecified (principal)
CPT/HCPCS: 36415; 82627; 82670; 82672; 82681; 83001; 84144; 84146; 84403

== ENCOUNTER 2025-10-12 11:32 | Inpatient (IN) | payer OTHER, SELFPAY ==
[2025-10-12] VITALS (9 sets, daily range): BP systolic 115–161; BP diastolic 65–93; PULSE 82–113; RESP 18–24; TEMP 36.3–38.4; O2SAT 96–98; BMI 40.7; BMI 41.8
--- NOTE | ~2025-10-12 | US_ITS ---
CLINICAL HISTORY: elevated Bilirubin, assess CBD, gall bladder US Abdomen Limited, Right Upper Quadrant COMPARISON: None provided FINDINGS: Echogenic, shadowing calculi in the gallbladder, obscuring portions of the gallbladder wall. No gallbladder wall thickening. No pericholecystic fluid. Sonographic Lombardi sign not documented. No bile duct dilation. Common bile duct measures 4 mm in diameter. IMPRESSION: Cholelithiasis. Please correlate with clinical findings to exclude acute cholecystitis. This document has been electronically signed by: Garth Samson MD on 10/12/2025 16:12:50
--- NOTE | ~2025-10-12 | NM_ITS ---
EXAMINATION: NM HEPATOBILIARY WITH PHARM HISTORY: ? cholecystitis. TECHNIQUE: An hepatobiliary scan was performed following the intravenous administration of 5.0 mCi technetium 99m-mebrofenin. Sequential images were obtained over 2 hours. Subsequently, the patient received 2.4 microgram of IV CCK over 30 minutes and additional imaging was performed. COMPARISON: Correlation is made with abdominal CT and ultrasound examinations dated 10/12/2025. FINDINGS: There is normal uptake and excretion of the radiopharmaceutical by the liver. Gallbladder activity is noted at 18 minutes. Common bile duct activity is seen at 12 minutes. Small bowel activity is noted at 22 minutes. After the administration of intravenous CCK, the estimated gallbladder ejection fraction is 4%, which is abnormally low (normal 35-80%), suggestive of biliary dyskinesia. NM/NM hepatobiliary w pharm IMPRESSION: 1. No evidence of cystic duct obstruction or acute cholecystitis. 2. Abnormally low gallbladder ejection fraction of 4%, suggestive of biliary dyskinesia. Electronically signed by: Tavares Levine MD 10/13/2025 01:39 PM [facility] [place]
--- NOTE | ~2025-10-12 | CT_ITS ---
CLINICAL HISTORY: elevated bilirubin, abd pain CT Abdomen and Pelvis W Contrast COMPARISON: US - US ABDOMEN LIMITED - 10/12/25 15:27 EST FINDINGS: Diffusely hypodense liver consistent with hepatic steatosis. Hepatomegaly. Splenomegaly. Normal kidneys. Normal adrenal glands. Normal pancreas. No visible cholelithiasis. No CT evidence of acute cholecystitis. No biliary dilation. No evidence of bowel obstruction or colitis. Normal appendix. Unremarkable bladder. Unremarkable uterus and ovaries. No ascites. No pneumoperitoneum. No lymphadenopathy. No acute fracture. No abdominal aortic aneurysm. IMPRESSION: No acute findings. Nonemergent/incidental findings above. This document has been electronically signed by: Garth Samson MD on 10/12/2025 17:35:55
--- NOTE | 2025-10-12 11:58 | ED.FEMALEGU ---
HPI - Female Genitourinary General Chief complaint: Abdominal Pain Stated complaint: Urinary Symptoms Time Seen by Provider: 10/12/25 13:03 Source: patient and RN notes reviewed Mode of arrival: ambulatory Limitations: no limitations History of Present Illness ED Provider: Keshia Oh PA-C HPI Narrative: This is a 35-year-old female, with a history of interstitial cystitis, who presents emergency department with multiple complaints. Patient states that she has had headaches, dizziness, feeling bloated, crampy, and also endorsing generalized malaise, chills without documented fever, and dark urine. Patient reports that her lower abdominal bloating and cramping is localized mainly below her umbilicus however occasionally radiates upward. She denies any pain radiating to her back, however does report she has had some pain radiating to her back over the last week. She reports some on and off nausea. She has been taking ondansetron, last dose was last night, she reports no current nausea at this moment. She denies any dysuria, urgency, or abnormal vaginal discharge. She states that she feels as though she is more pale than normal. She also reports feeling very warm with near-syncope. Patient reports poor appetite secondary to bloating, she has been taking Tylenol within recommended limits for pain. No alcohol or substance use. Patient reports that she noticed hematuria therefore she dipped her urine sample however the UA at the office that she dipped her urine at did not reveal any evidence of infection. She recently started on a sulfa antibiotic, which he has taken 3 times without any relief. No sick contacts. No history of abdominal surgeries in the past. Exacerbating factors: none Related Data Home Medications ?Medication ?Instructions ?Recorded ?Confirmed cholecalciferol (vitamin D3) 250 250 mcg PO DAILY 05/24/24 10/13/25 mcg (10,000 unit) capsule omeprazole 20 mg tablet,delayed 20 mg PO DAILY@0630 10/13/25 10/13/25 release Allergies Allergy/AdvReac Type Severity Reaction Status Date / Time No Known Allergies (No Known Allergy Verified 10/12/25 12:00 Allergies*) Review of Systems Review of Systems: Constitutional : No Fever, No Chills ENT/Mouth : No sore throat, No Rhinorrhea Eyes: No Eye Pain, No Swelling, No Redness Cardiovascular : No Chest Pain, No SOB Respiratory : No Cough, No Sputum Gastrointestinal : + Nausea, No Vomiting, No Diarrhea, + abdominal Pain Genitourinary : No Dysuria, +dark urine Musculoskeletal : No joint pain, No Myalgias, No Joint Swelling Skin : No Skin Lesions Neuro : No Weakness, No Numbness, No Headache All other systems reviewed and are negative Yes all other systems are reviewed and are negative Constitutional: Constitutional: Reports as per [facility] Past Medical History Attestation statement: The following information was validated with the patient. Surgical History History of placement of ear tubes Hx of adenoidectomy Family History Family History Mother Breast cancer Skin cancer Maternal Grandmother Breast cancer Liver cancer Paternal Grandfather FH: prostate cancer Social History Social History Household Members: Family Housing: Homeless Do you presently have visiting nurse or other home services: No Alcohol intake: current Alcohol intake frequency: holidays/special occasions only Alcohol type: wine Patient Tobacco Use Status: Never used Tobacco Smoked in Last 30 Days: No Use of substances other than those prescribed or required for medical reasons: No Currently Displaying Signs/Symptoms of Drug Intoxication Withdrawal: No Do you feel safe in your current relationship?: Yes Is there a partner from a previous relationship who is making you feel unsafe now?: No Are you made to feel afraid or neglected: No Advance Directives: No Advance Directives Information Provided: No Do you have a plan to hurt others: No Plan Recently lost weight without trying: No Nutrition Risks: No Nutritional Risk Patient : No : No Poor oral hygiene: No Physical Exam Vital Signs: Vital Signs: Last Vital Signs Temp 97.6 F 10/13/25 07:17 Pulse 100 10/13/25 07:17 Resp 18 10/13/25 07:17 BP 130/70 10/13/25 07:17 Pulse Ox 93 10/13/25 07:17 O2 Del Method Room Air 10/13/25 07:17 BMI result Body Mass Index 40.7 Const: General: cooperative, comfortable and no acute distress Orientation/consciousness: patient oriented x3 Limitations: no limitations HEENT: Head: Yes normal to inspection, Yes normocephalic and Yes atraumatic Ears: hearing grossly normal bilaterally General nose exam: Normal external nose present Face and sinus: Yes normal facial exam Mouth: Normal oral and palatal mucosa present, oropharynx normal and moist mucous membranes Throat: Yes posterior oropharynx normal Eyes: General: appearance normal, both eyes and all related structures Eyelids: Yes eyelids normal Conjunctivae: conjunctivae normal Sclerae: sclerae normal Pupils: Equal, round and reactive pupils present EOM: EOMs intact bilaterally Neck: Neck: Yes normal visual inspection, Yes full ROM and Yes no lymphadenopathy Lymphatic: no lymphadenopathy noted Chest: Chest palpation & inspection: normal inspection of the chest Resp: Effort & Inspection: normal respiratory effort and able to speak in complete sentences Auscultation: clear to auscultation bilaterally, no crackles, no rales, no rhonchi and no wheezes Cardio: Rate: regular rate Rhythm: regular rhythm Heart sounds: S1 normal heart sound present and S2 normal heart sound present GI: Other: Abdomen is soft, with tenderness to palpation throughout the entire abdomen, more pronounced in the suprapubic region, as well as the epigastrium and right upper quadrant. Inspection: Yes normal to inspection Skin: General skin exam: no rashes or lesions noted Trauma: no lacerations or abrasions Wounds: no wounds Neuro: General: patient oriented x3 and moves all extremities Cranial nerves: Yes Equal, round and reactive pupils present Extrem: General: Yes normal to inspection Right upper extremity: normal to inspection Left upper extremity: normal to inspection Right lower extremity: normal to inspection Left lower extremity: normal to inspection Course Course Course Narrative: This is a Rapid Medical Exam performed in triage by Malaika Pratt PA-C. Full HPI, ROS and PE to be performed by primary ED provider. 35 yo F presenting to the ED c/o GIL & dizziness last week, then with gross hematuria. Admits saw PCP & was started on ppx Abx - now reports abdominal pain, lightheadedness/near syncope, nausea, & subj fever. reports intermittent back pain. last menstruation 1wk ago PE: +dark urine, NAD, nontoxic appearing, ambulating with steady gait Plan: EKG, labs, UA, SARs, orthos Medications Administered Generic Name Dose Route Start Last Admin Trade Name Freq PRN Reason Stop Dose Admin Enoxaparin Sodium 40 mg 10/12/25 20:00 10/12/25 19:29 Enoxaparin Sodium 40 Mg/0.4 Ml Syringe SUBCUT 40 mg Q24H RAFFY Administration Hydromorphone HCl 0.5 mg 10/12/25 19:10 10/13/25 05:47 Hydromorphone Hcl 1 Mg/Ml Syringe IVPUSH 0.5 mg Q4H PRN Administration Pain, Severe (Pain Scale 7-10) Protocol Piperacillin Sod/Tazobactam 50 mls @ 100 mls/hr 10/13/25 00:00 10/13/25 06:18 Sod 3.375 gm/ Sodium Chloride IV Infused Q6H RAFFY Infusion Ondansetron HCl 4 mg 10/13/25 07:27 10/13/25 07:31 Ondansetron Hcl 4 Mg/2 Ml Vial IVPUSH 4 mg Q8H PRN Administration Nausea and Vomiting Sodium Chloride 3 ml 10/13/25 00:00 10/13/25 07:31 0.9 % Sodium Chloride Flush 3 Ml Syringe IVFLUSH 3 ml QSHIFT RAFFY Administration Discontinued Medications Generic Name Dose Route Start Last Admin Trade Name Freq PRN Reason Stop Dose Admin Sodium Chloride 1,000 mls @ 999 mls/hr 10/12/25 13:32 10/12/25 16:00 Ns IV 10/12/25 14:32 Infused .Q1H1M ONE Infusion Ceftriaxone Sodium 1 gm/ 50 mls @ 100 mls/hr 10/12/25 13:31 10/12/25 14:39 Sodium Chloride IV 10/12/25 14:00 Infused ONCE ONE Infusion Sodium Chloride 1,000 mls @ 500 mls/hr 10/12/25 16:52 10/12/25 20:33 Ns IV 10/12/25 18:51 Infused .Q2H ONE Infusion Acetaminophen 1,000 mg in 100 mls @ 400 mls/hr 10/12/25 18:35 10/12/25 20:32 Ofirmev IV 10/12/25 18:49 Infused ONCE ONE Infusion Iohexol 100 ml 10/12/25 17:19 10/12/25 17:19 Iohexol 350 Mg/Ml 100 Ml Infus..Btl IV 10/12/25 17:20 85 ml ONCE ONE Administration Morphine Sulfate 4 mg 10/12/25 16:51 10/12/25 17:09 Morphine Sulfate 4 Mg/Ml Cartridge IVPUSH 10/12/25 16:52 4 mg ONCE ONE Administration Protocol Ondansetron HCl 4 mg 10/12/25 16:51 10/12/25 17:09 Ondansetron Hcl 4 Mg/2 Ml Vial IVPUSH 10/12/25 16:52 4 mg ONCE ONE Administration Medical Decision Making Medical Decision Making [facility] Narrative: This is a 35-year-old female who presents emergency department with concerns of headache, decreased appetite, malaise, dark colored urine, on and off back pain, over the last week. On arrival, blood pressure mildly elevated at 161/83, all other vital signs within normal limits. She is speaking full sentences under no acute distress. No history of similar symptoms in the past. She was recently started on a sulfa medication as she noticed dark urin, and thought she had a urinary tract infection. She states that her symptoms persist, and she states that she is feeling unwell. Labs were obtained prior to my evaluation, she is leukopenic at 3.5 with a normocytic anemia with an H&H of 11.9/35.4 chemistry revealing elevated T bili at 2.8, direct bili at 2, AST and ALT 143/288, alk phos 162. UA with high specific gravity, proteinuria, trace blood, positive nitrites, large leuk esterases, rbc's and wbc's present. She does have epithelial cells present, this is a poor clean catch. Given elevated bilirubin, concern for gallbladder/liver etiology. She has no history of hepatitis. No history of drug or alcohol use. She does report that she has been taking Tylenol however not taking excessive amounts of Tylenol. Differential diagnoses include cholecystitis, cholangitis, biliary colic, malignancy, UTI, hepatitis, viral hepatitis, pancreatitis. Patient is not orthostatic. 4:07 PM 10/12/2025 (Keshia Oh PA-C): Awaiting abdominal ultrasound as well as CT at this time. We will continue to closely monitor. 6:30 PM 10/12/2025 (Keshia Oh PA-C): CT abdomen and pelvis revealing no acute findings, including no evidence of cholecystitis. I reached out to Dr. Connolly from GI who recommends MRCP if positive then patient would need to proceed to an ERCP. Recommending surgical consult as well. I spoke to Dr. Miller who is in agreement with the GI specialist. I discussed with hospitalist, Dr. Enriquez, who recommends possible surgical admission as patient has no significant past medical history, and urine appears to be contaminated, not a true UTI. 6:49 PM 10/12/2025 (Keshia Oh PA-C): I heard back from Dr. Miller, who states that patient will be best served on the hospitalist service as if the MRCP or ERCP is negative, there is no surgical intervention needed, needs further workup. Discussed with hospitalist service. 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 See MDM 10/13/25 05:58 10/13/25 05:58 Labs: Lab Results 10/12/25 10/12/25 10/12/25 Range/Units 12:19 13:51 14:02 WBC 3.5 L (4.8-10.8) X10*3/uL RBC 4.15 L (4.20-5.50) X10*6/uL Hgb 11.9 L (12.0-16.0) g/dl Hct 35.4 L (37.0-47.0) % MCV 85.3 (80.0-98.0) fL MCH 28.7 (27.0-33.0) pg MCHC 33.6 (31.0-35.0) g/dl RDW 13.4 (11.0-16.0) % Plt Count 178 D (160-400) X10*3/uL MPV 9.9 (9.4-12.3) fL Immature Gran % (Auto) Cancelled Neut % (Auto) Cancelled Lymph % (Auto) Cancelled [place] % (Auto) Cancelled Eos % (Auto) Cancelled Baso % (Auto) Cancelled Lymph # (Auto) Cancelled [place] # (Auto) Cancelled Eos # (Auto) Cancelled Baso # (Auto) Cancelled Abs Immat Gran (auto) Cancelled Absolute Neuts (auto) Cancelled Absolute Nucleated RBC 0.000 (0.0-0.012) X10*3/uL Nucleated RBC % (auto) 0.0 (0.0-0.2) /100WBC Neutrophils % (Manual) 36 L (45-73) % Band Neutrophils % 1 L (3-5) % Lymphocytes % (Manual) 36 (20-40) % Atypical Lymphs % (Man) 16 H (0-6) % Monocytes % (Manual) 11 (2-11) % Abs Neuts (Manual) 1.3 L (2.0-8.3) X10*3/uL Lymphocytes # (Manual) 1.3 (1.2-4.9) X10*3/uL Atyp Lymphs # (Manual) 0.6 x10*3/uL Monocytes # (Manual) 0.4 (0.1-1.2) X10*3/uL Platelet Estimate NORMAL (NORMAL) Plt Morphology Comment NORMAL RBC Morphology NORMAL Smear Path Review SEE NOTE Sodium 139 (135-145) mmol/L Potassium 3.7 (3.3-5.1) mmol/L Chloride 106 (96-108) mmol/L Carbon Dioxide 25 (22-29) mmol/L Anion Gap 12 (12-20) BUN 11 (9-16) mg/dL Creatinine 0.68 (0.5-1.4) mg/dL Estim Creat Clear Calc 150.4 Estimated GFR > 60 Random Glucose 126 H (60-115) mg/dL Lactic Acid 1.0 (0.5-2.0) mmol/L Calcium 9.1 (8.4-10.2) mg/dL Magnesium 1.9 (1.6-2.6) mg/dL Total Bilirubin 2.8 H (0.0-1.0) mg/dL Direct Bilirubin 2.0 H (0.0-0.5) mg/dL AST 143 H (5-31) U/L ALT 288 H (0-31) U/L Alkaline Phosphatase 162 H (39-117) U/L Total Creatine Kinase 39 (26-140) U/L Total Protein 6.8 (6.5-8.0) g/dL Albumin 4.0 (3.5-5.0) g/dL Lipase 28 (8-78) U/L Urine Color Dark Yellow Urine Appearance Turbid Urine pH 6.5 (5.0-9.0) Ur Specific [place] >= 1.030 H (1.005-1.025) Urine Protein 30 (1+) H (Neg-Trace) mg/dL Urine Glucose (UA) Negative (Negative) mg/dL Urine Ketones Trace (Negative) mg/dL Urine Blood Trace H (Negative) Urine Nitrite Positive H (Negative) Ur Leukocyte Esterase Large (3+) H (Negative) Urine RBC 3-5 H (0-2) /HPF Urine WBC >50 H (0-5) /HPF Ur Squamous Epith Cells >20 (0-2) /HPF Urine Bacteria 4+ (None Seen) Hyaline Casts 0-2 (0-2) /LPF Urine Test NEGATIVE (NEGATIVE) Hepatitis A IgM Ab Nonreactive (Nonreactive) Hep Bs Antigen Negative (Negative) Hep Bs Antibody REACTIVE (Nonreactive) Hep B Core Total Ab Nonreactive (Nonreactive) Hepatitis C Ab (EIA) Nonreactive (Nonreactive) Influenza Type A (PCR) NEGATIVE (Negative) Influenza Type B (PCR) NEGATIVE (Negative) RSV RNA Qual (PCR) NEGATIVE (Negative) SARS-CoV-2 RNA (RT-PCR) NEGATIVE (Negative) Radiology Impression Discussion of test interpretation with radiology: I have reviewed the radiologist's reading. Radiologist Impression: FINDINGS: Diffusely hypodense liver consistent with hepatic steatosis. Hepatomegaly. Splenomegaly. Normal kidneys. Normal adrenal glands. Normal pancreas. No visible cholelithiasis. No CT evidence of acute cholecystitis. No biliary dilation. No evidence of bowel obstruction or colitis. Normal appendix. Unremarkable bladder. Unremarkable uterus and ovaries. No ascites. No pneumoperitoneum. No lymphadenopathy. No acute fracture. No abdominal aortic aneurysm. IMPRESSION: No acute findings. Nonemergent/incidental findings above. This document has been electronically signed by: Garth Samson MD on 10/12/2025 17:35:55 Dictated By: Garth Samson MD FINDINGS: Echogenic, shadowing calculi in the gallbladder, obscuring portions of the gallbladder wall. No gallbladder wall thickening. No pericholecystic fluid. Sonographic Lombardi sign not documented. No bile duct dilation. Common bile duct measures 4 mm in diameter. IMPRESSION: Cholelithiasis. Please correlate with clinical findings to exclude acute cholecystitis. This document has been electronically signed by: Garth Samson MD on 10/12/2025 16:12:50 Dictated By: Garth Samson MD Critical Care Time Critical Care Time Critical Care Time: Yes Total Critical Care Time: 50 Attestation: I have personally provided critical care time exclusive of time spent on separately billable procedures. Time includes review of lab data, radiology results, discussion with consultants, and monitoring for potential decompensation. Intervention performed as documented. Discharge Plan Discharge Clinical Impression: Hyperbilirubinemia Abdominal pain Qualifiers: Abdominal location: unspecified location Qualified Code(s): R10.9 - Unspecified abdominal pain Patient Disposition: Admitted As Inpatient Interventions: Admission Worksheet (ED) Last Done: 10/12/25 20:16 Discharge Date/Time: 10/12/25 20:17
--- NOTE | 2025-10-12 12:00 | ECG_ITS ---
Test Reason : DIZZINESS Blood Pressure : */* mmHG Vent. Rate : 96 BPM Atrial Rate : 96 BPM P-R Int : 162 ms QRS Dur : 80 ms QT Int : 350 ms P-R-T Axes : 42 57 36 degrees QTcB Int : 442 ms Normal sinus rhythm Normal ECG No previous ECGs available Referred By: Malaika Pratt Electronically Signed By: ZEESHAN FRAZIER MD
[2025-10-12 12:27] LABS: UPreg QC Valid YES
[2025-10-12 12:28] LABS: Appearance Urine Turbid; Glucose Urine UA Negative (Negative); PH 6.5 (5.0-9.0); Specific Gravity - Urine >= 1.030 (1.005-1.025); UMIC TRIGGER UACC YES
[2025-10-12 12:31] LABS: Hematocrit 35.4 % (37.0-47.0); Hemoglobin 11.9 g/dl (12.0-16.0); Mean Corpuscular HGB Conc 33.6 g/dl (31.0-35.0); Mean Corpuscular Hemoglobin 28.7 pg (27.0-33.0); Mean Corpuscular Volume 85.3 fL (80.0-98.0); NRBC Abs Auto 0.000 X10*3/uL (0.0-0.012); NRBC Pct Auto 0.0 /100WBC (0.0-0.2); Platelet Count 178 X10*3/uL (160-400); Red Blood Count 4.15 X10*6/uL (4.20-5.50); White Blood Count 3.5 X10*3/uL (4.8-10.8)
[2025-10-12 12:36] LABS: UACC Culture Trigger YES
[2025-10-12 12:42] LABS: Alanine Aminotransferase 288 U/L (0-31); Albumin Level 4.0 g/dL (3.5-5.0); Alkaline Phosphatase 162 U/L (39-117); Anion Gap 12 (12-20); Aspartate Amino Transferase 143 U/L (5-31); Blood Urea Nitrogen 11 mg/dL (9-16); Calcium 9.1 mg/dL (8.4-10.2); Carbon Dioxide 25 mmol/L (22-29); Chloride 106 mmol/L (96-108); Creatinine Clr Calc Pharmacy 150.4; Estimated Glomerular Filt Rate > 60; Lipase 28 U/L (8-78); Magnesium 1.9 mg/dL (1.6-2.6); Potassium 3.7 mmol/L (3.3-5.1); Sodium 139 mmol/L (135-145); Total Protein 6.8 g/dL (6.5-8.0)
[2025-10-12 13:14] LABS: Atypical Lymph Absolute Manual 0.6 x10*3/uL; Atypical Lymphs Percent Manual 16 % (0-6); Band Neutrophils Percent 1 % (3-5); Lymphocytes Absolute Manual 1.3 X10*3/uL (1.2-4.9); Lymphocytes Percent Manual 36 % (20-40); Monocytes Absolute Manual 0.4 X10*3/uL (0.1-1.2); Monocytes Percent Manual 11 % (2-11); Neutrophils Absolute Manual 1.3 X10*3/uL (2.0-8.3); Neutrophils Percent Manual 36 % (45-73)
[2025-10-12 13:15] LABS: RBC Morphology NORMAL; Resp Syncy Virus RNA Qual PCR NEGATIVE (Negative); SARS COV2 PCR INHOUSE NEGATIVE (Negative)
--- NOTE | 2025-10-12 13:25 | PC.NURSE ---
Pt describing mult complaints x 1 week. gen weakness, abd cramping, headaches, nausea. has been taking zofran. feels like her color is off.
[2025-10-12] MEDS: iohexoL 350 MG/ML 100 ML INFUS..BTL IV (17:19)
--- NOTE | 2025-10-12 18:10 | HO.NURTONUR ---
Pt here with over a week of abd cramping, headaches, nausea, dark urine. The ED suspected choleycystitis but imaging does not confirm. Pt admitted for additional imaging. Has needed morphine for pain relief. Noted labs: elevated LFT's, Bilirubin, Has UTI, has recieved ceftriaxone IVPB, negative viral swab and pending hep panel.
--- NOTE | 2025-10-12 18:34 | PC.NURSE ---
Pt is flush. Temp elevated. Provider aware. Has been able to rest intermittently. Awaits admission
--- NOTE | 2025-10-12 19:16 | P.HPHOSP_ITS ---
History of Present Illness Date of Service: 10/12/25 Chief Complaint: abd pain 35-year-old female with no significant past medical history presented to the hospital with a chief complaint of not feeling well. Patient reports that for about a week she has been having upper abdominal pain; associated nausea. Denies any diarrhea. Denies any sick contacts. Denies any food poisoning. Denies any illicit drug use or alcohol use. Review of all other systems is negative except mentioned above ER course: Per ER team, patient not have abdominal tenderness; CT abdomen pelvis showed findings concerning for hepatic steatosis, hepatomegaly, splenomegaly. Right upper quadrant ultrasound showed cholelithiasis-suspected acute cholecystitis Liver enzymes elevated. [facility] Family History Mother Breast cancer Skin cancer Maternal Grandmother Breast cancer Liver cancer Paternal Grandfather FH: prostate cancer Surgical History History of placement of ear tubes Hx of adenoidectomy Social History Household Members: Family Housing: Homeless Do you presently have visiting nurse or other home services: No Alcohol intake: current Alcohol intake frequency: holidays/special occasions only Alcohol type: wine Patient Tobacco Use Status: Never used Tobacco Smoked in Last 30 Days: No Use of substances other than those prescribed or required for medical reasons: No Currently Displaying Signs/Symptoms of Drug Intoxication Withdrawal: No Do you feel safe in your current relationship?: Yes Is there a partner from a previous relationship who is making you feel unsafe now?: No Are you made to feel afraid or neglected: No Advance Directives: No Advance Directives Information Provided: No Do you have a plan to hurt others: No Plan Recently lost weight without trying: No Nutrition Risks: No Nutritional Risk Patient : No : No Poor oral hygiene: No Meds Allergies Allergy/AdvReac Type Severity Reaction Status Date / Time No Known Allergies (No Known Allergy Verified 10/12/25 12:00 Allergies*) Active Medications: Current Medications Acetaminophen (Acetaminophen 325 Mg Tablet) 650 mg PO Q6H PRN PRN Reason: Pain, Mild 1-3,fever,headache Benzonatate (Benzonatate 100 Mg Capsule) 100 mg PO TID PRN PRN Reason: Cough Calcium Carbonate (Calcium Carbonate 750 Mg Tab.Chew) 750 mg PO Q4H PRN PRN Reason: Heartburn Enoxaparin Sodium (Enoxaparin Sodium 40 Mg/0.4 Ml Syringe) 40 mg SUBCUT Q24H RAFFY Hydromorphone HCl (Hydromorphone Hcl 1 Mg/Ml Syringe) 0.5 mg IVPUSH Q4H PRN; Protocol PRN Reason: Pain, Severe (Pain Scale 7-10) Piperacillin Sod/Tazobactam (Sod 3.375 gm/ Sodium Chloride) 50 mls @ 100 mls/hr IV Q6H RAFFY Magnesium Hydroxide (Milk Of Magnesia 30 Ml Oral.Susp) 30 ml PO DAILY PRN PRN Reason: Constipation Melatonin (Melatonin 3 Mg Tablet) 6 mg PO BEDTIME PRN PRN Reason: Insomnia Sodium Chloride (0.9 % Sodium Chloride Flush 3 Ml Syringe) 3 ml IVFLUSH QSHIFT RAFFY Home Medications ?Medication ?Instructions ?Recorded ?Confirmed ?Last Taken ?Type cholecalciferol (vitamin D3) 250 250 mcg PO DAILY 05/06 07/30 Unknown History mcg (10,000 unit) capsule Physical Exam 2 Vital Signs and Narrative: Vital Signs: Last Vital Signs Temp 101.1 F H 10/12/25 18:33 Pulse 92 10/12/25 18:33 Resp 18 10/12/25 18:33 BP 121/79 10/12/25 18:33 Pulse Ox 98 10/12/25 18:33 O2 Del Method Room Air 10/12/25 18:33 BMI result Body Mass Index 40.7 Gen: Appears be in no acute distress HEENT: NCAT, Moist mucosa. Pulmonary: Vesicular breath sounds, fair air entry CVS: Normal S1-S2 Abdomen: BS+, Soft, mildly tender in the right upper quadrant Extremities: Warm well perfused Neuro: Alert and awake. Results Labs 10/12/25 12:19 10/12/25 12:19 Labs: Laboratory Results - last 24 hr 10/12/25 10/12/25 12:19 13:51 MCV 85.3 MCH 28.7 MCHC 33.6 RDW 13.4 Plt Count 178 D MPV 9.9 Immature Gran % (Auto) Cancelled Neut % (Auto) Cancelled Lymph % (Auto) Cancelled [place] % (Auto) Cancelled Eos % (Auto) Cancelled Baso % (Auto) Cancelled Lymph # (Auto) Cancelled [place] # (Auto) Cancelled Eos # (Auto) Cancelled Baso # (Auto) Cancelled Abs Immat Gran (auto) Cancelled Absolute Neuts (auto) Cancelled Absolute Nucleated RBC 0.000 Nucleated RBC % (auto) 0.0 Neutrophils % (Manual) 36 L Band Neutrophils % 1 L Lymphocytes % (Manual) 36 Atypical Lymphs % (Man) 16 H Monocytes % (Manual) 11 Abs Neuts (Manual) 1.3 L Lymphocytes # (Manual) 1.3 Atyp Lymphs # (Manual) 0.6 Monocytes # (Manual) 0.4 Platelet Estimate NORMAL Plt Morphology Comment NORMAL RBC Morphology NORMAL Anion Gap 12 Estim Creat Clear Calc 150.4 Estimated GFR > 60 Random Glucose 126 H Lactic Acid 1.0 Calcium 9.1 Magnesium 1.9 Total Bilirubin 2.8 H Direct Bilirubin 2.0 H AST 143 H ALT 288 H Alkaline Phosphatase 162 H Total Creatine Kinase 39 Total Protein 6.8 Albumin 4.0 Lipase 28 Urine Color Dark Yellow Urine Appearance Turbid Urine pH 6.5 Ur Specific [place] >= 1.030 H Urine Protein 30 (1+) H Urine Glucose (UA) Negative Urine Ketones Trace Urine Blood Trace H Urine Nitrite Positive H Ur Leukocyte Esterase Large (3+) H Urine RBC 3-5 H Urine WBC >50 H Ur Squamous Epith Cells >20 Urine Bacteria 4+ Hyaline Casts 0-2 Urine Test NEGATIVE Influenza Type A (PCR) NEGATIVE Influenza Type B (PCR) NEGATIVE RSV RNA Qual (PCR) NEGATIVE SARS-CoV-2 RNA (RT-PCR) NEGATIVE Assessment and Plan (1) Abdominal pain: Qualifiers: Abdominal location: unspecified location Qualified Code(s): R10.9 - Unspecified abdominal pain Status: Acute Plan 35-year-old female with no significant past medical history presented to the hospital with a chief complaint of not feeling well/abdominal pain. Noted to have transaminitis/cholelithiasis. Transaminitis: Cholelithiasis: Suspected acute cholecystitis: Lipase within normal limits Empirically covered with Zosyn HIDA scan Surgery consult Pain control Clear liquid diet Acute hepatitis panel Trend liver enzymes GI follow-up DVT prophylaxis: Lovenox Code status: Full code Quality Stroke Does the patient have a stroke diagnosis?: No VTE Prior VTE?: No VTE Risk Level:: Medical - moderate - high VTE Device Contraindication: Treatment Not Indicated VTE Drug Contraindication: N/A - Med Ordered
--- NOTE | 2025-10-12 19:37 | HO.NURTONUR ---
RN assumed care at 1900, pt currently has NS bolus infusing in the #20 LAC- RN hung up IV Tylenol and administered lovenox. Report already placed by previous shift. pt just got inpatien bed- transport to bring pt in 30 min. pt currently has no needs at this time. bed at lowest position, call rudolph within reach.
[2025-10-13] VITALS (7 sets, daily range): BP systolic 106–130; BP diastolic 68–80; PULSE 91–100; RESP 15–18; TEMP 36.2–36.6; O2SAT 93–99
[2025-10-13] MEDS: 0.9 % Sodium Chloride Flush 3 ML SYRINGE IVFLUSH ×3 (00:04→19:56)
--- NOTE | 2025-10-13 06:16 | P.CONGS_ITS ---
History of Present Illness Consult details Consult date: 10/13/25 Reason for consult: gallstones Requesting physician: Lawrence Mena Narrative: Arelne Flores is a 35 year old female with PMH of interstitial cystitis who presented to the ED with several complaints including headache, abdominal cramping, bloating, malaise, chills and possible hematuria. Patient reports that she has had abdominal pain in two separate areas. She reports lower abdominal pressure and cramping. She also reports epigastric/RUQ pain that is more severe/sharp in nature and comes in waves. Her abdominal pain is associated with intermittent nausea for which she has been taking zofran. Patient reports poor appetite secondary to bloating and pain. She denies alcohol or substance use. Recently started on bactrim for UTI by her PCP. Work up in the ED included CBC, BMP, LFTs which showed mild anemia and elevated liver enzymes. No leukocytosis. Abdominal imaging included ABD US which showed gallstones without gallbladder wall thickening and CT scan abd/pelvis which was unremarkable for acute pathology, GB appears contracted on my review, no biliary ductal dilatation. UA suggestive of UTI. She was admitted to the hospitalist service for further work up of her abdominal pain and elevated liver enzymes. She reports continued abdominal pain and nausea. She is dry heaving during exam. She does report some soreness of the upper abdomen over the past month thinking back. She endorses yellowing of her eyes. Denies past abdominal surgery. Review of Systems 2 Constitutional: Constitutional: Reports as per HPI and Denies fever(s) ENT: Reports dizziness Cardiovascular: Cardiovascular: Denies chest pain and Denies dyspnea Respiratory: Respiratory: Denies dyspnea Gastrointestinal: Gastrointestinal: Reports as per HPI Genitourinary: Genitourinary: Reports hematuria and Denies difficulty voiding Integumentary/Breasts: Skin/Breast: Denies rash Neurologic: Reports dizziness PMFSH Family History Family History Mother Breast cancer Skin cancer Maternal Grandmother Breast cancer Liver cancer Paternal Grandfather FH: prostate cancer Surgical History Surgical History History of placement of ear tubes Hx of adenoidectomy Social History Social History Household Members: Family Housing: Homeless Do you presently have visiting nurse or other home services: No Alcohol intake: current Alcohol intake frequency: holidays/special occasions only Alcohol type: wine Patient Tobacco Use Status: Never used Tobacco Smoked in Last 30 Days: No Use of substances other than those prescribed or required for medical reasons: No Currently Displaying Signs/Symptoms of Drug Intoxication Withdrawal: No Do you feel safe in your current relationship?: Yes Is there a partner from a previous relationship who is making you feel unsafe now?: No Are you made to feel afraid or neglected: No Advance Directives: No Advance Directives Information Provided: No Do you have a plan to hurt others: No Plan Recently lost weight without trying: No Nutrition Risks: No Nutritional Risk Patient : No : No Poor oral hygiene: No Meds Allergies Allergy/AdvReac Type Severity Reaction Status Date / Time No Known Allergies (No Known Allergy Verified 10/12/25 12:00 Allergies*) Active Medications: Current Medications Acetaminophen (Acetaminophen 325 Mg Tablet) 650 mg PO Q6H PRN PRN Reason: Pain, Mild 1-3,fever,headache Benzonatate (Benzonatate 100 Mg Capsule) 100 mg PO TID PRN PRN Reason: Cough Calcium Carbonate (Calcium Carbonate 750 Mg Tab.Chew) 750 mg PO Q4H PRN PRN Reason: Heartburn Enoxaparin Sodium (Enoxaparin Sodium 40 Mg/0.4 Ml Syringe) 40 mg SUBCUT Q24H [facility] Last Admin: 10/12/25 19:29 Dose: 40 mg Hydromorphone HCl (Hydromorphone Hcl 1 Mg/Ml Syringe) 0.5 mg IVPUSH Q4H PRN; Protocol PRN Reason: Pain, Severe (Pain Scale 7-10) Last Admin: 10/13/25 05:47 Dose: 0.5 mg Piperacillin Sod/Tazobactam (Sod 3.375 gm/ Sodium Chloride) 50 mls @ 100 mls/hr IV Q6H [facility] Last Admin: 10/13/25 05:42 Dose: 100 mls/hr Magnesium Hydroxide (Milk Of Magnesia 30 Ml Oral.Susp) 30 ml PO DAILY PRN PRN Reason: Constipation Melatonin (Melatonin 3 Mg Tablet) 6 mg PO BEDTIME PRN PRN Reason: Insomnia Sodium Chloride (0.9 % Sodium Chloride Flush 3 Ml Syringe) 3 ml IVFLUSH QSHIFT [facility] Last Admin: 10/13/25 00:04 Dose: 3 ml Home Medications ?Medication ?Instructions ?Recorded ?Confirmed ?Last Taken ?Type cholecalciferol (vitamin D3) 250 250 mcg PO DAILY 05/06 07/30 Unknown History mcg (10,000 unit) capsule Physical Exam 2 Vital Signs: Vital Signs: Last Vital Signs Temp 97.3 F 10/13/25 04:00 Pulse 95 10/13/25 04:00 Resp 18 10/13/25 04:00 BP 116/70 10/13/25 04:00 Pulse Ox 99 10/13/25 04:00 O2 Del Method Room Air 10/13/25 04:00 BMI result Body Mass Index 41.8 Const: Other: uncomfortable appearing General: no acute distress and alert Orientation/consciousness: patient oriented x3 Eyes: Sclerae: scleral abnormal (icteric) Resp: Effort & Inspection: normal respiratory effort, able to speak in complete sentences and not tachypneic GI: Other: corpulent abdomen soft very mild upper abdominal tenderness in both right and left upper quadrants negative taobr sign Inspection: No scar Palpation (GI): no guarding and not rigid Skin: Other: mild jaundice Neuro: General: patient oriented x3 and moves all extremities Results Labs 10/13/25 05:58 10/13/25 05:58 Labs: Abnormal lab results 10/12/25 Range/Units 12:19 WBC 3.5 L (4.8-10.8) X10*3/uL RBC 4.15 L (4.20-5.50) X10*6/uL Hgb 11.9 L (12.0-16.0) g/dl Hct 35.4 L (37.0-47.0) % Neutrophils % (Manual) 36 L (45-73) % Band Neutrophils % 1 L (3-5) % Atypical Lymphs % (Man) 16 H (0-6) % Abs Neuts (Manual) 1.3 L (2.0-8.3) X10*3/uL Random Glucose 126 H (60-115) mg/dL Total Bilirubin 2.8 H (0.0-1.0) mg/dL Direct Bilirubin 2.0 H (0.0-0.5) mg/dL AST 143 H (5-31) U/L ALT 288 H (0-31) U/L Alkaline Phosphatase 162 H (39-117) U/L Ur Specific [place] >= 1.030 H (1.005-1.025) Urine Protein 30 (1+) H (Neg-Trace) mg/dL Urine Blood Trace H (Negative) Urine Nitrite Positive H (Negative) Ur Leukocyte Esterase Large (3+) H (Negative) Urine RBC 3-5 H (0-2) /HPF Urine WBC >50 H (0-5) /HPF Short CBC 10/12/25 Range/Units 12:19 WBC 3.5 L (4.8-10.8) X10*3/uL Hgb 11.9 L (12.0-16.0) g/dl Hct 35.4 L (37.0-47.0) % Plt Count 178 D (160-400) X10*3/uL BMP 10/12/25 12:19 Sodium 139 Potassium 3.7 Chloride 106 Carbon Dioxide 25 BUN 11 Creatinine 0.68 Calcium 9.1 Cardiac Enzymes 10/12/25 Range/Units 12:19 Total Creatine Kinase 39 (26-140) U/L Liver Function 10/12/25 Range/Units 12:19 Total Bilirubin 2.8 H (0.0-1.0) mg/dL Direct Bilirubin 2.0 H (0.0-0.5) mg/dL AST 143 H (5-31) U/L ALT 288 H (0-31) U/L Alkaline Phosphatase 162 H (39-117) U/L Albumin 4.0 (3.5-5.0) g/dL Urine 10/12/25 Range/Units 12:19 Urine Color Dark Yellow Urine Appearance Turbid Urine pH 6.5 (5.0-9.0) Ur Specific [place] >= 1.030 H (1.005-1.025) Urine Protein 30 (1+) H (Neg-Trace) mg/dL Urine Glucose (UA) Negative (Negative) mg/dL Urine Test NEGATIVE (NEGATIVE) All other labs normal. Imaging Abdomen CT scan report/results: report reviewed and image reviewed Abdominal ultrasound report/results: report reviewed and image reviewed Additional studies: labs reviewed Assessment and Plan (1) Abdominal pain: Qualifiers: Abdominal location: unspecified location Qualified Code(s): R10.9 - Unspecified abdominal pain Status: Acute (2) Hyperbilirubinemia: Status: Acute Plan 35 year old female presenting with multiple complaints including upper and lower abdominal pain x 1 week with associated nausea found to have gallstones, elevated liver enzymes and UTI. Admitted to medicine service for further work up. Liver enzymes remain elevated this morning with continued pain. Rec GI consult. HIDA scan has been ordered for evaluation by the hospitalist service. Doubt acute cholecystitis and no biliary ductal dilatation on imaging but CBD needs to be cleared. Further plan dependent on imaging. Cont supportive measures. Patient comfortable with plan. Procedures Date of Service Date of Service: 10/13/25
[2025-10-13 06:23] LABS: Hematocrit 33.9 % (37.0-47.0); Hemoglobin 11.4 g/dl (12.0-16.0); Mean Corpuscular HGB Conc 33.6 g/dl (31.0-35.0); Mean Corpuscular Hemoglobin 28.6 pg (27.0-33.0); Mean Corpuscular Volume 85.2 fL (80.0-98.0); NRBC Abs Auto 0.000 X10*3/uL (0.0-0.012); NRBC Pct Auto 0.0 /100WBC (0.0-0.2); Platelet Count 182 X10*3/uL (160-400); Red Blood Count 3.98 X10*6/uL (4.20-5.50); White Blood Count 5.0 X10*3/uL (4.8-10.8)
[2025-10-13 06:51] LABS: Alanine Aminotransferase 263 U/L (0-31); Albumin Level 3.5 g/dL (3.5-5.0); Alkaline Phosphatase 165 U/L (39-117); Anion Gap 10 (12-20); Aspartate Amino Transferase 143 U/L (5-31); Blood Urea Nitrogen 6 mg/dL (9-16); Carbon Dioxide 24 mmol/L (22-29); Chloride 106 mmol/L (96-108); Creatinine Clr Calc Pharmacy 154.9; Estimated Glomerular Filt Rate > 60; Potassium 4.1 mmol/L (3.3-5.1); Sodium 136 mmol/L (135-145); Total Protein 6.2 g/dL (6.5-8.0)
[2025-10-13 07:00] LABS: Atypical Lymph Absolute Manual 0.6 x10*3/uL; Atypical Lymphs Percent Manual 11 % (0-6); Band Neutrophils Percent 6 % (3-5); Calcium 8.1 mg/dL (8.4-10.2); Lymphocytes Absolute Manual 1.2 X10*3/uL (1.2-4.9); Lymphocytes Percent Manual 24 % (20-40); Monocytes Absolute Manual 1.0 X10*3/uL (0.1-1.2); Monocytes Percent Manual 20 % (2-11); Neutrophils Absolute Manual 2.3 X10*3/uL (2.0-8.3); Neutrophils Percent Manual 39 % (45-73); RBC Morphology NORMAL
[2025-10-13 08:35] LABS: HBS Num1 184.85 mIU/mL (0-7.99); HBc Num1 0.09 S/CO (0.00-0.79); HBsAGNum1 0.32 S/CO (0.00-0.99); Hepatitis A Antibody IgM 0.22 Index (0-0.79); Hepatitis B Surface Antigen Negative (Negative); ~HepC Num1 0.11 S/CO (0.00-0.79); ~Hepatitis A Antibody IgM Nonreactive (Nonreactive); ~Hepatitis B Surface Antibody REACTIVE (Nonreactive); ~Hepatitis C Antibody Nonreactive (Nonreactive)
--- NOTE | 2025-10-13 08:51 | PHA.MEDREC ---
Addendum entered by Gregorio Chambers RPh 10/13/25 10:41: Reviewed by [facility] Original Note: Pharmacy Consult ? Medication Reconciliation Pharmacy has completed the medication reconciliation. Spoke with pt and she confirmed she is only taking OTC Omeprazole 20mg tabs 1 QD@0630 and Vitamin D3 250mcg QD and nothing else at this time.
[2025-10-13 09:07] LABS: Gamma Glutamyl Transpeptidase 366 U/L (7-33)
[2025-10-13 10:26] LABS: HIV Num 1 0.22 S/CO (0.00-0.99)
--- NOTE | 2025-10-13 12:01 | MHC.CM.PN ---
pt lives with her family is working and indepdent has a ride home dc p,an home n/s
--- NOTE | 2025-10-13 14:30 | P.PNIM_ITS ---
Subjective Subjective Date of Service: 10/13/25 Interval History: fever of 101.1 yesterday evening, none since abd pain improved tolerating clears no sore throat Review of Systems Review of Systems: Yes all other systems are reviewed and are negative Physical Exam 2 Vital Signs: Vital Signs: Last Vital Signs Temp 97.6 F 10/13/25 07:17 Pulse 100 10/13/25 07:17 Resp 18 10/13/25 07:17 BP 130/70 10/13/25 07:17 Pulse Ox 93 10/13/25 07:17 O2 Del Method Room Air 10/13/25 07:17 BMI result Body Mass Index 41.8 Gen: in no acute distress HEENT: sclera anicteric, moist mucus membranes Neck: supple Lungs: clear to auscultation bilaterally Heart: regular rate and rhythm, no murmurs Abd: soft, non-tender, non-distended, obese Ext: no edema Skin: warm/well-perfused Neuro: alert and oriented x3, no focal findings Psych: appropriate affect Objective Data Active Medications Acetaminophen (Acetaminophen 325 Mg Tablet) 650 mg PO Q6H PRN PRN Reason: Pain, Mild 1-3,fever,headache Last Admin: 10/13/25 13:33 Dose: 650 mg Documented By: CHE Benzonatate (Benzonatate 100 Mg Capsule) 100 mg PO TID PRN PRN Reason: Cough Calcium Carbonate (Calcium Carbonate 750 Mg Tab.Chew) 750 mg PO Q4H PRN PRN Reason: Heartburn Enoxaparin Sodium (Enoxaparin Sodium 40 Mg/0.4 Ml Syringe) 40 mg SUBCUT Q24H [facility] Last Admin: 10/12/25 19:29 Dose: 40 mg Documented By: OMKAR Hydromorphone HCl (Hydromorphone Hcl 1 Mg/Ml Syringe) 0.5 mg IVPUSH Q4H PRN; Protocol PRN Reason: Pain, Severe (Pain Scale 7-10) Last Admin: 10/13/25 05:47 Dose: 0.5 mg Documented By: LEO Magnesium Hydroxide (Milk Of Magnesia 30 Ml Oral.Susp) 30 ml PO DAILY PRN PRN Reason: Constipation Melatonin (Melatonin 3 Mg Tablet) 6 mg PO BEDTIME PRN PRN Reason: Insomnia Ondansetron HCl (Ondansetron Hcl 4 Mg/2 Ml Vial) 4 mg IVPUSH Q8H PRN PRN Reason: Nausea and Vomiting Last Admin: 10/13/25 07:31 Dose: 4 mg Documented By: CHE Sodium Chloride (0.9 % Sodium Chloride Flush 3 Ml Syringe) 3 ml IVFLUSH QSHIFT [facility] Last Admin: 10/13/25 07:31 Dose: 3 ml Documented By: CHE Labs 10/13/25 05:58 10/13/25 05:58 Labs: Laboratory Results - last 24 hr 10/12/25 10/12/25 10/13/25 12:19 14:02 05:58 MCV 85.2 MCH 28.6 MCHC 33.6 RDW 13.6 Plt Count 182 MPV 9.8 Immature Gran % (Auto) Cancelled Neut % (Auto) Cancelled Lymph % (Auto) Cancelled [place] % (Auto) Cancelled Eos % (Auto) Cancelled Baso % (Auto) Cancelled Lymph # (Auto) Cancelled [place] # (Auto) Cancelled Eos # (Auto) Cancelled Baso # (Auto) Cancelled Abs Immat Gran (auto) Cancelled Absolute Neuts (auto) Cancelled Absolute Nucleated RBC 0.000 Nucleated RBC % (auto) 0.0 Neutrophils % (Manual) 39 L Band Neutrophils % 6 H Lymphocytes % (Manual) 24 Atypical Lymphs % (Man) 11 H Monocytes % (Manual) 20 H Abs Neuts (Manual) 2.3 Lymphocytes # (Manual) 1.2 Atyp Lymphs # (Manual) 0.6 Monocytes # (Manual) 1.0 Platelet Estimate NORMAL Plt Morphology Comment NORMAL RBC Morphology NORMAL Smear Path Review SEE NOTE Anion Gap 10 L Estim Creat Clear Calc 154.9 Estimated GFR > 60 Random Glucose 91 Calcium 8.1 L D Total Bilirubin 2.2 H Direct Bilirubin 1.5 H GGT 366 H AST 143 H ALT 263 H Alkaline Phosphatase 165 H Total Protein 6.2 L Albumin 3.5 Hepatitis A IgM Ab Nonreactive Hep Bs Antigen Negative Hep Bs Antibody REACTIVE Hep B Core Total Ab Nonreactive Hepatitis C Ab (EIA) Nonreactive Monoscreen HIV 1&2 Ab/P24 Ag 4thGn 10/13/25 09:40 MCV MCH MCHC RDW Plt Count MPV Immature Gran % (Auto) Neut % (Auto) Lymph % (Auto) [place] % (Auto) Eos % (Auto) Baso % (Auto) Lymph # (Auto) [place] # (Auto) Eos # (Auto) Baso # (Auto) Abs Immat Gran (auto) Absolute Neuts (auto) Absolute Nucleated RBC Nucleated RBC % (auto) Neutrophils % (Manual) Band Neutrophils % Lymphocytes % (Manual) Atypical Lymphs % (Man) Monocytes % (Manual) Abs Neuts (Manual) Lymphocytes # (Manual) Atyp Lymphs # (Manual) Monocytes # (Manual) Platelet Estimate Plt Morphology Comment RBC Morphology Smear Path Review Anion Gap Estim Creat Clear Calc Estimated GFR Random Glucose Calcium Total Bilirubin Direct Bilirubin GGT AST ALT Alkaline Phosphatase Total Protein Albumin Hepatitis A IgM Ab Hep Bs Antigen Hep Bs Antibody Hep B Core Total Ab Hepatitis C Ab (EIA) Monoscreen Positive A HIV 1&2 Ab/P24 Ag 4thGn Nonreactive Microbiology Microbiology Results: Microbiology 10/12/25 Unknown Urine Culture - Final Urine clean catch - Clean Catch Midstream Assessment and Plan (1) Abdominal pain: Status: Acute (2) Hyperbilirubinemia: Status: Acute Plan d2, 35yo F with morbid obesity presenting with 1 week of malaise and abdominal pain, found to have cholestasis/hepatocellular hepatitis. HIDA negative for acute cholecystitis [though shows biliary dyskinesia]. Noted to have atypical lymphocytosis and hepatospleonmeagly. Likely due to EBV infection. acute EBV infection - d/c Zosyn, advance diet, repeat LFTs tomorrow, GI consult pending. Avoid contact sports given splenomegaly morbid obesity: diet/exercise counseling VTE ppx: enoxaparin dispo: home In my clinical judgment, the patient requires continued inpatient hospitalization for the following reasons: GI consultation, LFT monitoring Total time managing care of this patient today: 40 minutes. Quality Stroke Does the patient have a stroke diagnosis?: No VTE Prior VTE?: No VTE Risk Level:: Medical - moderate - high VTE Device Contraindication: Treatment Not Indicated VTE Drug Contraindication: N/A - Med Ordered
--- NOTE | 2025-10-14 01:41 | CONS_ITS ---
DATE OF SERVICE: 10/13/2025 REFERRING PHYSICIAN: ROSALIE Neely REASON FOR CONSULTATION: Elevated liver function tests and abdominal pain. HISTORY OF PRESENT ILLNESS: The patient is a pleasant 35-year-old woman who was admitted to the hospital after presenting to the emergency department on October 12 with complaints of headaches, dizziness, bloating, abdominal cramping, and malaise and chills. Consultation is requested as she was found to have elevated liver function tests with a total bilirubin of 2.2 and AST of 143 with an ALT of 263, imaging studies were subsequently undertaken, which are reviewed. A HIDA scan was done, which showed an abnormally low gallbladder ejection fraction, but no evidence of cystic duct or biliary obstruction. The patient denies any prior history of liver problems. She has no complaints of nausea or vomiting today and has been tolerating an improved diet. She has also been seen in consultation by General Surgery. PAST MEDICAL HISTORY: Interstitial cystitis. She denies other medical or surgical illnesses. CURRENT MEDICATIONS: Her current medication list is reviewed in the chart. ALLERGIES: THERE ARE NONE REPORTED. FAMILY HISTORY: This is reviewed with the patient and her mother and is noncontributory. SOCIAL HISTORY: There is no current tobacco, alcohol, or substance abuse. 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 REVIEW OF SYSTEMS: SKIN: No pruritus. HEENT: Negative. CARDIOPULMONARY: No shortness of breath or chest pain. GASTROINTESTINAL: As above. GENITOURINARY: Negative. NEUROPSYCHIATRIC: Negative. PHYSICAL EXAMINATION: GENERAL: Shows a pleasant female, lying comfortably in bed. VITAL SIGNS: Reviewed in the electronic medical record and are stable. SKIN: Anicteric. HEENT: Shows no scleral icterus. NECK: Without lymphadenopathy or thyromegaly. LUNGS: Clear. HEART: Shows a regular rate and rhythm. S1, S2. No murmur. ABDOMEN: Soft without focal masses or tenderness. Bowel sounds are present. No organomegaly is noted. EXTREMITIES: Without edema. LABORATORY STUDIES: Reviewed. IMAGING STUDIES: Reviewed. IMPRESSION: Elevated liver function tests. This could be related to a viral infection as she did have a positive screen for mononucleosis. At this time, there seems to be no significant biliary pathology, and I would recommend treating her supportively with IV fluids, pain medications, and advancing her diet as tolerated. She can follow up with her outpatient provider for monitoring of her liver enzymes. Thank you for asking me to see her. I will follow her in the hospital with you. MD BHAKTI Mariscal/[facility] / [phone]
[2025-10-14 03:23] VITALS: BP 123/74; PULSE 113; RESP 18; TEMP 37.3; O2SAT 95
[2025-10-14 03:40] VITALS: BP 123/74; PULSE 113; RESP 18; TEMP 37.3; O2SAT 95
[2025-10-14 06:43] LABS: EBV-NA IgG Index <18.00 U/mL; EBV-VCA IgG Ab 78.40 U/mL; EBV-VCA IgM Ab 93.90 U/mL
[2025-10-14 06:55] LABS: Alanine Aminotransferase 270 U/L (0-31); Albumin Level 3.5 g/dL (3.5-5.0); Alkaline Phosphatase 184 U/L (39-117); Anion Gap 11 (12-20); Aspartate Amino Transferase 161 U/L (5-31); Blood Urea Nitrogen 7 mg/dL (9-16); Calcium 8.3 mg/dL (8.4-10.2); Carbon Dioxide 26 mmol/L (22-29); Chloride 105 mmol/L (96-108); Creatinine Clr Calc Pharmacy 157.3; Estimated Glomerular Filt Rate > 60; Potassium 3.8 mmol/L (3.3-5.1); Sodium 138 mmol/L (135-145); Total Protein 6.3 g/dL (6.5-8.0)
[2025-10-14 06:56] LABS: INTERNATIONAL NORM RATIO 1.0 (0.9-1.1); Prothrombin Time 12.8 SEC (11.2-13.5)
[2025-10-14 07:57] VITALS: BP 106/68; PULSE 91; RESP 16; TEMP 36.2; O2SAT 95
--- NOTE | 2025-10-14 08:02 | PM.PNGS ---
Subjective Subjective Date of Service: 10/14/25 Interval history: Feels much better this morning. Was able to tolerated a solid diet of pork last night for dinner without any RUQ pain, nausea/vomiting. Denies prior RUQ pain after eating in the past. Physical Exam Vital Signs: Vital Signs: Last Vital Signs Temp 97.1 F 10/14/25 07:57 Pulse 91 10/14/25 07:57 Resp 16 10/14/25 07:57 BP 106/68 10/14/25 07:57 Pulse Ox 95 10/14/25 07:57 O2 Del Method Room Air 10/14/25 07:57 BMI result Body Mass Index 41.8 Const: General: comfortable, no acute distress and alert Orientation/consciousness: patient oriented x3 Resp: Effort & Inspection: normal respiratory effort GI: Inspection: Yes normal to inspection Palpation (GI): Soft to palpation, nontender and no guarding Skin: General skin exam: no rashes or lesions noted Neuro: General: patient oriented x3 and moves all extremities Objective Data Active Medications Acetaminophen (Acetaminophen 325 Mg Tablet) 650 mg PO Q6H PRN PRN Reason: Pain, Mild 1-3,fever,headache Last Admin: 10/14/25 02:30 Dose: 650 mg Documented By: LEO Benzonatate (Benzonatate 100 Mg Capsule) 100 mg PO TID PRN PRN Reason: Cough Calcium Carbonate (Calcium Carbonate 750 Mg Tab.Chew) 750 mg PO Q4H PRN PRN Reason: Heartburn Enoxaparin Sodium (Enoxaparin Sodium 40 Mg/0.4 Ml Syringe) 40 mg SUBCUT Q24H [facility] Last Admin: 10/13/25 19:56 Dose: 40 mg Documented By: LEO Hydromorphone HCl (Hydromorphone Hcl 1 Mg/Ml Syringe) 0.5 mg IVPUSH Q4H PRN; Protocol PRN Reason: Pain, Severe (Pain Scale 7-10) Last Admin: 10/13/25 05:47 Dose: 0.5 mg Documented By: LEO Magnesium Hydroxide (Milk Of Magnesia 30 Ml Oral.Susp) 30 ml PO DAILY PRN PRN Reason: Constipation Melatonin (Melatonin 3 Mg Tablet) 6 mg PO BEDTIME PRN PRN Reason: Insomnia Ondansetron HCl (Ondansetron Hcl 4 Mg/2 Ml Vial) 4 mg IVPUSH Q8H PRN PRN Reason: Nausea and Vomiting Last Admin: 10/13/25 07:31 Dose: 4 mg Documented By: CHE Sodium Chloride (0.9 % Sodium Chloride Flush 3 Ml Syringe) 3 ml IVFLUSH QSHIFT [facility] Last Admin: 10/13/25 19:56 Dose: 3 ml Documented By: LEO Labs 10/13/25 05:58 10/14/25 05:51 Labs: Laboratory Results - last 24 hr 10/12/25 10/12/25 10/13/25 12:19 14:02 05:58 Smear Path Review SEE NOTE Hold Purple Top PT INR Anion Gap Estim Creat Clear Calc Estimated GFR Random Glucose Calcium Total Bilirubin Direct Bilirubin 1.5 H GGT 366 H AST ALT Alkaline Phosphatase Lactate Dehydrogenase 380 H Total Protein Albumin EBV Capsid Ag IgG Ab EBV Capsid Ag IgM Index EBV Nuclear Ag IgG Indx EBV Antibody Interp Hepatitis A IgM Ab Nonreactive Hep Bs Antigen Negative Hep Bs Antibody REACTIVE Hep B Core Total Ab Nonreactive Hepatitis C Ab (EIA) Nonreactive Monoscreen HIV 1&2 Ab/P24 Ag 4thGn 10/13/25 10/14/25 10/14/25 09:40 05:51 05:52 Smear Path Review Hold Purple Top SEE NOTE PT 12.8 INR 1.0 Anion Gap 11 L Estim Creat Clear Calc 157.3 Estimated GFR > 60 Random Glucose 102 Calcium 8.3 L Total Bilirubin 1.5 H Direct Bilirubin 0.9 H GGT AST 161 H ALT 270 H Alkaline Phosphatase 184 H Lactate Dehydrogenase Total Protein 6.3 L Albumin 3.5 EBV Capsid Ag IgG Ab 78.40 H EBV Capsid Ag IgM Index 93.90 H EBV Nuclear Ag IgG Indx <18.00 EBV Antibody Interp SEE NOTE Hepatitis A IgM Ab Hep Bs Antigen Hep Bs Antibody Hep B Core Total Ab Hepatitis C Ab (EIA) Monoscreen Positive A HIV 1&2 Ab/P24 Ag 4thGn Nonreactive Microbiology Microbiology Results: Microbiology 10/12/25 14:02 Blood Culture - Preliminary Blood - Venous No growth after 24 hours. 10/12/25 13:51 Blood Culture - Preliminary Blood - Venous No growth after 24 hours. 10/12/25 Unknown Urine Culture - Final Urine clean catch - Clean Catch Midstream Procedures Date of Service Date of Service: 12/09/25 Progress Note: A&P Assessment and plan (1) Hyperbilirubinemia: Status: Acute Plan HIDA scan yesterday showed biliary dyskinesia with EF of 4% in setting of acute EBV infection/cholestatic hepatitis. Anticipate this is likely secondary to the hepatitis/acute infection and would improve with resolution of the inflammation. She has no symptoms suggestive of biliary dyskinesia. Abd is soft, nontender. Would therefore recommend observation and continuing supportive measures. LFTs improving this morning. We discussed symptomatology suggestive of biliary dyskinesia and she can follow up in the office if she develops these. She is comfortable with that plan. Time Spent With Patient Time: Total time managing care of this patient today ____ minutes. Quality Stroke Does the patient have a stroke diagnosis?: No VTE Prior VTE?: No VTE Risk Level:: Medical - moderate - high VTE Device Contraindication: Treatment Not Indicated VTE Drug Contraindication: N/A - Med Ordered
--- NOTE | 2025-10-14 11:11 | P.DS_ITS ---
DS: Providers Provider Date of Service: 10/14/25 Date of admission: 10/12/25 19:11 Date of discharge: 10/14/25 Primary care physician: Ru Louis MD Consults: 10/12/25 18:54 Consult to General Surgery Stat Consulting Provider: Wes Miller Reason for consultation: hyperbilirubinemia, abdominal pain, ?cholecystitis 10/12/25 18:55 Consult to Gastroenterology Stat Consulting Provider: Tavares Connolly Reason for consultation: elevated bilirubin, abdominal pain Has provider been notified: Yes 10/12/25 19:10 Consult to General Surgery Routine Consulting Provider: [facility] General Surgeons Reason for consultation: ? acute cholecystitis 10/12/25 19:13 Consult to Gastroenterology Routine Consulting Provider: Tavares Connolly Reason for consultation: Transaminitis DS: Diagnosis Discharge Diagnosis (1) Hyperbilirubinemia: Status: Acute (2) EBV hepatitis: Status: Acute (3) Biliary dyskinesia: Status: Acute (4) Morbid obesity: Status: Acute DS: Summary Hospital Course Hospital Course: From the history and physical by admitter Saw Mena, 10/12/25: '35-year-old female with no significant past medical history presented to the hospital with a chief complaint of not feeling well. Patient reports that for about a week she has been having upper abdominal pain; associated nausea. Denies any diarrhea. Denies any sick contacts. Denies any food poisoning. Denies any illicit drug use or alcohol use. Review of all other systems is negative except mentioned above ER course: Per ER team, patient not have abdominal tenderness; CT abdomen pelvis showed findings concerning for hepatic steatosis, hepatomegaly, splenomegaly. Right upper quadrant ultrasound showed cholelithiasis-suspected acute cholecystitis Liver enzymes elevated.' 35yo F with morbid obesity presenting with 1 week of malaise and abdominal pain, found to have cholestasis/hepatocellular hepatitis. Febrile on admission. HIDA negative for acute cholecystitis [though showed biliary dyskinesia]. Noted to have atypical lymphocytosis and hepatosplenomegaly. Monospot and EBV capsid IgM and IgG positive. Hepatitis attributed to early EBV infection. Diet was advanced with good tolerance. Fever resolved. Bilirubin improved. Discharged home with supportive care [acetaminophen or ibuprofen for pain] and instructions to repeat LFTs in 1 week and avoid contact sports for 3-4 weeks. 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 Time Attestation Discharge Coordination Time (in mins): 35 Quality: Safe Use of Opioids Does Pt have an Active Cancer Diagnosis on the Problem List?: No Quality: Stroke Does the patient have a stroke diagnosis?: No Physical Exam Vital Signs: Vital Signs: Last Vital Signs Temp 97.1 F 10/14/25 07:57 Pulse 91 10/14/25 07:57 Resp 16 10/14/25 07:57 BP 106/68 10/14/25 07:57 Pulse Ox 95 10/14/25 07:57 O2 Del Method Room Air 10/14/25 07:57 BMI result Body Mass Index 41.8 Gen: in no acute distress HEENT: sclera anicteric, moist mucus membranes Neck: supple Lungs: clear to auscultation bilaterally Heart: regular rate and rhythm, no murmurs Abd: soft, non-tender, non-distended, obese Ext: no edema Skin: warm/well-perfused Neuro: alert and oriented x3, no focal findings Psych: appropriate affect DS: Data Data Completed and Pending Completed studies during hospitalization [Text1]: Laboratory Results WBC 5.0 X10*3/uL (4.8-10.8) 10/13/25 05:58 RBC 3.98 X10*6/uL (4.20-5.50) L 10/13/25 05:58 Hgb 11.4 g/dl (12.0-16.0) L 10/13/25 05:58 Hct 33.9 % (37.0-47.0) L 10/13/25 05:58 MCV 85.2 fL (80.0-98.0) 10/13/25 05:58 MCH 28.6 pg (27.0-33.0) 10/13/25 05:58 MCHC 33.6 g/dl (31.0-35.0) 10/13/25 05:58 RDW 13.6 % (11.0-16.0) 10/13/25 05:58 Plt Count 182 X10*3/uL (160-400) 10/13/25 05:58 MPV 9.8 fL (9.4-12.3) 10/13/25 05:58 Immature Gran % (Auto) Cancelled 10/13/25 05:58 Neut % (Auto) Cancelled 10/13/25 05:58 Lymph % (Auto) Cancelled 10/13/25 05:58 [place] % (Auto) Cancelled 10/13/25 05:58 Eos % (Auto) Cancelled 10/13/25 05:58 Baso % (Auto) Cancelled 10/13/25 05:58 Lymph # (Auto) Cancelled 10/13/25 05:58 [place] # (Auto) Cancelled 10/13/25 05:58 Eos # (Auto) Cancelled 10/13/25 05:58 Baso # (Auto) Cancelled 10/13/25 05:58 Abs Immat Gran (auto) Cancelled 10/13/25 05:58 Absolute Neuts (auto) Cancelled 10/13/25 05:58 Absolute Nucleated RBC 0.000 X10*3/uL (0.0-0.012) 10/13/25 05:58 Nucleated RBC % (auto) 0.0 /100WBC (0.0-0.2) 10/13/25 05:58 Neutrophils % (Manual) 39 % (45-73) L 10/13/25 05:58 Band Neutrophils % 6 % (3-5) H 10/13/25 05:58 Lymphocytes % (Manual) 24 % (20-40) 10/13/25 05:58 Atypical Lymphs % (Man) 11 % (0-6) H 10/13/25 05:58 Monocytes % (Manual) 20 % (2-11) H 10/13/25 05:58 Abs Neuts (Manual) 2.3 X10*3/uL (2.0-8.3) 10/13/25 05:58 Lymphocytes # (Manual) 1.2 X10*3/uL (1.2-4.9) 10/13/25 05:58 Atyp Lymphs # (Manual) 0.6 x10*3/uL 10/13/25 05:58 Monocytes # (Manual) 1.0 X10*3/uL (0.1-1.2) 10/13/25 05:58 Platelet Estimate NORMAL (NORMAL) 10/13/25 05:58 Plt Morphology Comment NORMAL 10/13/25 05:58 RBC Morphology NORMAL 10/13/25 05:58 Smear Path Review SEE NOTE 10/12/25 12:19 Hold Purple Top SEE NOTE 10/14/25 05:51 PT 12.8 SEC (11.2-13.5) 10/14/25 05:52 INR 1.0 (0.9-1.1) 10/14/25 05:52 Sodium 138 mmol/L (135-145) 10/14/25 05:51 Potassium 3.8 mmol/L (3.3-5.1) 10/14/25 05:51 Chloride 105 mmol/L (96-108) 10/14/25 05:51 Carbon Dioxide 26 mmol/L (22-29) 10/14/25 05:51 Anion Gap 11 (12-20) L 10/14/25 05:51 BUN 7 mg/dL (9-16) L 10/14/25 05:51 Creatinine 0.66 mg/dL (0.5-1.4) 10/14/25 05:51 Estim Creat Clear Calc 157.3 10/14/25 05:51 Estimated GFR > 60 10/14/25 05:51 Random Glucose 102 mg/dL (60-115) 10/14/25 05:51 Lactic Acid 1.0 mmol/L (0.5-2.0) 10/12/25 13:51 Calcium 8.3 mg/dL (8.4-10.2) L 10/14/25 05:51 Magnesium 1.9 mg/dL (1.6-2.6) 10/12/25 12:19 Total Bilirubin 1.5 mg/dL (0.0-1.0) H 10/14/25 05:51 Direct Bilirubin 0.9 mg/dL (0.0-0.5) H 10/14/25 05:51 GGT 366 U/L (7-33) H 10/13/25 05:58 AST 161 U/L (5-31) H 10/14/25 05:51 ALT 270 U/L (0-31) H 10/14/25 05:51 Alkaline Phosphatase 184 U/L (39-117) H 10/14/25 05:51 Lactate Dehydrogenase 380 U/L (122-220) H 10/13/25 05:58 Total Creatine Kinase 39 U/L (26-140) 10/12/25 12:19 Total Protein 6.3 g/dL (6.5-8.0) L 10/14/25 05:51 Albumin 3.5 g/dL (3.5-5.0) 10/14/25 05:51 Lipase 28 U/L (8-78) 10/12/25 12:19 Urine Color Dark Yellow 10/12/25 12:19 Urine Appearance Turbid 10/12/25 12:19 Urine pH 6.5 (5.0-9.0) 10/12/25 12:19 Ur Specific [place] >= 1.030 (1.005-1.025) H 10/12/25 12:19 Urine Protein 30 (1+) mg/dL (Neg-Trace) H 10/12/25 12:19 Urine Glucose (UA) Negative mg/dL (Negative) 10/12/25 12:19 Urine Ketones Trace mg/dL (Negative) 10/12/25 12:19 Urine Blood Trace (Negative) H 10/12/25 12:19 Urine Nitrite Positive (Negative) H 10/12/25 12:19 Ur Leukocyte Esterase Large (3+) (Negative) H 10/12/25 12:19 Urine RBC 3-5 /HPF (0-2) H 10/12/25 12:19 Urine WBC >50 /HPF (0-5) H 10/12/25 12:19 Ur Squamous Epith Cells >20 /HPF (0-2) 10/12/25 12:19 Urine Bacteria 4+ (None Seen) 10/12/25 12:19 Hyaline Casts 0-2 /LPF (0-2) 10/12/25 12:19 Urine Test NEGATIVE (NEGATIVE) 10/12/25 12:19 EBV Capsid Ag IgG Ab 78.40 U/mL H 10/13/25 09:40 EBV Capsid Ag IgM Index 93.90 U/mL H 10/13/25 09:40 EBV Nuclear Ag IgG Indx <18.00 U/mL 10/13/25 09:40 EBV Antibody Interp SEE NOTE 10/13/25 09:40 Hepatitis A IgM Ab Nonreactive (Nonreactive) 10/12/25 14:02 Hep Bs Antigen Negative (Negative) 10/12/25 14:02 Hep Bs Antibody REACTIVE (Nonreactive) 10/12/25 14:02 Hep B Core Total Ab Nonreactive (Nonreactive) 10/12/25 14:02 Hepatitis C Ab (EIA) Nonreactive (Nonreactive) 10/12/25 14:02 Monoscreen Positive (Negative) A 10/13/25 09:40 HIV 1&2 Ab/P24 Ag 4thGn Nonreactive (Nonreactive) 10/13/25 09:40 Influenza Type A (PCR) NEGATIVE (Negative) 10/12/25 12:19 Influenza Type B (PCR) NEGATIVE (Negative) 10/12/25 12:19 RSV RNA Qual (PCR) NEGATIVE (Negative) 10/12/25 12:19 SARS-CoV-2 RNA (RT-PCR) NEGATIVE (Negative) 10/12/25 12:19 Impressions Hepatobiliary Scan Nuclear Medicine 10/13/25 10:08 IMPRESSION: 1. No evidence of cystic duct obstruction or acute cholecystitis. 2. Abnormally low gallbladder ejection fraction of 4%, suggestive of biliary dyskinesia. Electronically signed by: Tavares Levine MD 10/13/2025 01:39 PM [facility] Discharge Plan Discharge Anticipated Discharge Date/Time: 10/14/25 10:52 Patient Disposition: Home, Self-Care Discharge Diagnosis: hepatitis due to Jennifer Vazquez virus Referrals: Ru Louis MD [Primary Care Provider, Internal Medicine] - 1 Week Discharge Medications: Continued omeprazole 20 mg Tablet,Delayed Release (Dr/Ec) 20 mg PO DAILY@0630 cholecalciferol (vitamin D3) 250 mcg (10,000 unit) capsule 250 mcg PO DAILY Discharge Orders: Discharge Order (Routine); Ordered 10/14/25 Ordered By: Radha Marti Diet: Advance to usual diet Activity on Discharge: As tolerated Stand Alone Forms: Patient Portal Discharge page Print Language: Amharic Other Ambulatory Orders: Liver Panel (Routine) Timeframe: 1 Week Facility: [facility] - Location: Laboratory Ordered By: Radha Marti Care Plan Goals: recover from viral infection Health Concerns: hepatitis due to Jennifer Vazquez virus Plan of Treatment: take acetaminophen [maximum 2000 mg/d] or ibuprofen [maximum 1800 mg/d] for pain repeat liver panel in 1 week no contact sports for 1 month Please follow up with your primary care doctor within 1 week. Return to the hospital if you experience recurrent or worsening symptoms. Assessment: See Discharge Summary.
[2025-10-15 18:23] LABS: EBV DNA PCR Detected (Not Detected)
== END 2025-10-14 11:29 | disposition home or self-care (01) | DRG 865 ==
LOC: HO.ED 18:56 → HO.EDOVER 19:17 → HO.S3 19:30
PROVIDERS: Physician Assistant; Physician Assistant Medical; Admitting Provider Hospitalist; Emergency Provider Emergency Medicine; PCP Internal Medicine; Visit Provider Family Medicine
DX: B27.09 Gammaherpesviral mononucleosis with other complications (principal); K83.1 Obstruction of bile duct; B17.8 Other specified acute viral hepatitis; Z68.41 Body mass index [BMI] 40.0-44.9, adult; Z59.02 Unsheltered homelessness; E66.01 Morbid (severe) obesity due to excess calories; Z71.3 Dietary counseling and surveillance; Z20.822 Contact with and (suspected) exposure to COVID-19; K82.8 Other specified diseases of gallbladder; Z79.899 Other long term (current) drug therapy
CPT/HCPCS: 36415; 74177; 76705; 78227; 80048; 80053; 80076; 81001; 81025; 82248; 82550; 82977; 83605; 83615; 83690; 83735; 85007; 85025; 85027; 85610; 86308; 86664; 86665; 86704; 86706; 86709; 86803; 87040; 87086; 87340; 87389; 87637; 87798; 93005; 99221; 99285; A9537; J0131; J0696; J1171; J1650; J2270; J2405; J2543; J2805; Q9967

== ENCOUNTER → 2025-10-12 12:00 | Outpatient (BNV) | payer OTHER, SELFPAY | PROVIDERS: Admitting Provider Hospitalist; Emergency Provider Emergency Medicine; PCP Internal Medicine; Visit Provider Internal Medicine Cardiovascular Disease | DX: R42 Dizziness and giddiness (principal) | CPT/HCPCS: 93010 ==

== ENCOUNTER → 2025-10-12 15:22 | Outpatient (BNV) | payer OTHER, SELFPAY | PROVIDERS: Emergency Provider Emergency Medicine; PCP Internal Medicine; Visit Provider Radiology Diagnostic Radiology | DX: R10.9 Unspecified abdominal pain (principal); K80.20 Calculus of gallbladder without cholecystitis without obstruction; E80.6 Other disorders of bilirubin metabolism | CPT/HCPCS: 74177; 76705 ==

== ENCOUNTER 2025-10-12 19:11 | Outpatient (BNV) | payer OTHER, SELFPAY | END 2025-10-13 10:08 | PROVIDERS: Admitting Provider Hospitalist; Emergency Provider Emergency Medicine; PCP Internal Medicine; Visit Provider Radiology Diagnostic Radiology | DX: Z03.89 Encounter for observation for other suspected diseases and conditions ruled out (principal) | CPT/HCPCS: 78227 ==

== ENCOUNTER → 2025-10-12 19:11 | Outpatient (BNV) | payer OTHER, SELFPAY | PROVIDERS: Admitting Provider Hospitalist; Emergency Provider Emergency Medicine; PCP Internal Medicine; Visit Provider Physician Assistant Surgical | DX: R10.9 Unspecified abdominal pain (principal); E80.6 Other disorders of bilirubin metabolism | CPT/HCPCS: 99222; 99232 ==

== ENCOUNTER → 2025-10-12 19:11 | Outpatient (BNV) | payer OTHER, SELFPAY | PROVIDERS: Admitting Provider Hospitalist; Emergency Provider Emergency Medicine; PCP Internal Medicine; Visit Provider Hospitalist | DX: B27.09 Gammaherpesviral mononucleosis with other complications (principal); B17.8 Other specified acute viral hepatitis; K82.8 Other specified diseases of gallbladder; E80.6 Other disorders of bilirubin metabolism | CPT/HCPCS: 99222; 99232; 99239 ==

== ENCOUNTER 2025-10-21 16:25 | Outpatient (REF) | payer OTHER, SELFPAY ==
[2025-10-21 17:03] LABS: Hematocrit 34.7 % (37.0-47.0); Hemoglobin 11.4 g/dl (12.0-16.0); Mean Corpuscular HGB Conc 32.9 g/dl (31.0-35.0); Mean Corpuscular Hemoglobin 28.5 pg (27.0-33.0); Mean Corpuscular Volume 86.8 fL (80.0-98.0); NRBC Abs Auto 0.000 X10*3/uL (0.0-0.012); NRBC Pct Auto 0.0 /100WBC (0.0-0.2); Platelet Count 326 X10*3/uL (160-400); Red Blood Count 4.00 X10*6/uL (4.20-5.50); White Blood Count 5.4 X10*3/uL (4.8-10.8)
[2025-10-21 17:43] LABS: Alanine Aminotransferase 90 U/L (0-31); Albumin Level 4.2 g/dL (3.5-5.0); Alkaline Phosphatase 138 U/L (39-117); Aspartate Amino Transferase 61 U/L (5-31); Total Protein 7.2 g/dL (6.5-8.0)
[2025-10-21 17:56] LABS: Alanine Aminotransferase 88 U/L (0-31); Albumin Level 4.2 g/dL (3.5-5.0); Alkaline Phosphatase 137 U/L (39-117); Anion Gap 10 (12-20); Aspartate Amino Transferase 61 U/L (5-31); Blood Urea Nitrogen 11 mg/dL (9-16); Calcium 9.0 mg/dL (8.4-10.2); Carbon Dioxide 28 mmol/L (22-29); Chloride 104 mmol/L (96-108); Estimated Glomerular Filt Rate > 60; Gamma Glutamyl Transpeptidase 214 U/L (7-33); Iron 67 mcg/dL (30-160); Lipase 27 U/L (8-78); Percent Iron Saturation 18 % (15-50); Potassium 4.3 mmol/L (3.3-5.1); Sodium 138 mmol/L (135-145); Total Iron Binding Capacity 375 mcg/dL (228-428); Total Protein 7.2 g/dL (6.5-8.0); Unsaturated Iron Binding 308 ug/dL
[2025-10-21 18:06] LABS: Amylase 45 U/L (28-100); Ferritin 236 ng/mL (10-122)
[2025-10-21 18:31] LABS: Appearance Urine Clear; Glucose Urine UA Negative (Negative); PH 6.0 (5.0-9.0); Specific Gravity - Urine <= 1.005 (1.005-1.025)
[2025-10-21 19:21] LABS: Atypical Lymph Absolute Manual 0.8 x10*3/uL; Atypical Lymphs Percent Manual 15 % (0-6); Band Neutrophils Percent 1 % (3-5); Basophils Abs Manual 0.1 X10*3/uL (0.0-0.2); Basophils Percent Manual 1 % (0-2); Lymphocytes Absolute Manual 2.6 X10*3/uL (1.2-4.9); Lymphocytes Percent Manual 49 % (20-40); Monocytes Absolute Manual 0.3 X10*3/uL (0.1-1.2); Monocytes Percent Manual 5 % (2-11); Neutrophils Absolute Manual 1.6 X10*3/uL (2.0-8.3); Neutrophils Percent Manual 29 % (45-73)
[2025-10-21 19:23] LABS: RBC Morphology NORMAL
== END 2025-10-21 16:26 | disposition home or self-care (01) ==
LOC: HO.LAB 16:25
PROVIDERS: Absent Provider Physician Assistant; PCP Internal Medicine; Visit Provider Family Medicine
DX: B27.09 Gammaherpesviral mononucleosis with other complications (principal); K75.9 Inflammatory liver disease, unspecified; D50.0 Iron deficiency anemia secondary to blood loss (chronic); R30.0 Dysuria
CPT/HCPCS: 36415; 80053; 80076; 81003; 82150; 82248; 82728; 82977; 83540; 83690; 85007; 85025; 85027